=== PATIENT | female | born 1950 | race Caucasian/White ===

== ENCOUNTER 2018-12-02 13:39 | Inpatient (IN) | payer MEDICAID, MEDICARE ==
[~2018-12-02] VITALS: Ht 175.3 cm; Wt 103.6 kg
[2018-12-02 14:21] LABS: BASO % 1 % (0-3); EOS # 0.1 x10^3/uL (0.0-0.7); EOS % 2 % (0-3); HEMATOCRIT 35.8 % (36.0-47.0); HEMOGLOBIN 11.8 g/dL (12.0-15.5); LYMPH # 1.3 x10^3/uL (1.0-4.8); LYMPH % 25 % (24-48); MEAN CORPUSCULAR HEMOGLOBIN 26 pg (25-35); MEAN CORPUSCULAR HGB CONC 33 g/dL (31-37); MEAN CORPUSCULAR VOLUME 79 fL (79-100); MONO # 0.3 x10^3/uL (0.0-1.1); MONO % 6 % (0-9); NEUT # 3.5 x10^3uL (1.8-7.7); NEUT % 67 % (31-73); PLATELET COUNT 220 x10^3/uL (140-400); RED BLOOD COUNT 4.54 x10^6/uL (3.50-5.40); RED CELL DISTRIBUTION WIDTH 16.8 % (11.5-14.5); WHITE BLOOD COUNT 5.2 x10^3/uL (4.0-11.0)
[2018-12-02 14:35] LABS: ALBUMIN 3.7 g/dL (3.4-5.0); ALBUMIN/GLOBULIN RATIO 1.2 (1.0-1.7); CALCIUM 9.2 mg/dL (8.5-10.1); CREATININE 1.1 mg/dL (0.6-1.0); GFR 49.4; MAGNESIUM 1.6 mg/dL (1.8-2.4); POTASSIUM 4.6 mmol/L (3.5-5.1); TOTAL BILIRUBIN 0.4 mg/dL (0.2-1.0); TOTAL PROTEIN 6.7 g/dL (6.4-8.2)
[2018-12-02 15:37] LABS: BACTERIA,URINE MOD /HPF (0-FEW); BILIRUBIN,URINE NEG (NEG); CLARITY,URINE CLOUDY; COLOR,URINE YELLOW; GLUCOSE,URINE NEG (NEG); NITRITE,URINE POS (NEG); SQUAMOUS EPITHELIAL CELL,UR OCC /LPF; UROBILINOGEN,URINE 0.2 mg/dL (0.2 mg/dL); WBC,URINE >40 /HPF (0-4)
[2018-12-02 15:38] LABS: HYALINE CASTS, URINE OCC /HPF
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
[2018-12-02] MEDS ORDERED: LIDOCAINE 1% Multi-Dose 20 ML VIAL. ONE (16:27)
[2018-12-02] MEDS ORDERED: cefTRIAXone IM 1 GM VIAL IM ONE (16:45)
[2018-12-02 17:32] VITALS: BP 114/73
[2018-12-02] MEDS ORDERED: MAGNESIUM HYDROXIDE 2,400 MG/30 ML ORAL.SUSP. PO PRN (18:00)
[2018-12-02] MEDS ORDERED: METHYL SALICYLATE/MENTHOL TOPICAL OINTMENT 29GM TUBE. TP PRN (18:00)
[2018-12-02] MEDS ORDERED: ACETAMINOPHEN 325 MG TABLET PO PRN ×2 (18:00→21:00)
[2018-12-02] MEDS ORDERED: MAG HYDROX/AL HYDROX/SIMETH 30 ML ORAL.SUSP PO PRN (18:00)
[2018-12-02] MEDS ORDERED: LIDO30CR TP (20:57)
[2018-12-02] MEDS ORDERED: LEVE500T56 PO (20:57)
[2018-12-02] MEDS ORDERED: CHOL100013 PO (20:57)
[2018-12-02] MEDS ORDERED: FURO-69 PO (20:57)
[2018-12-02] MEDS ORDERED: POLY255P11 PO (20:57)
[2018-12-02] MEDS ORDERED: DICL100G18 TP (20:57)
[2018-12-02] MEDS ORDERED: MAGN2400 PO (20:57)
[2018-12-02] MEDS ORDERED: METH5TAB4 PO (20:57)
[2018-12-02] MEDS ORDERED: ARIP5TAB13 PO (20:57)
[2018-12-02] MEDS ORDERED: NYST15PO9 TP (20:57)
[2018-12-02] MEDS ORDERED: MELO7.5T29 PO (20:57)
[2018-12-02] MEDS ORDERED: CRAN200C2 PO (20:57)
[2018-12-02] MEDS ORDERED: METF500T PO (20:57)
[2018-12-02] MEDS ORDERED: ASPI325T11 PO (20:57)
[2018-12-02] MEDS ORDERED: SODI51CR DT (20:57)
[2018-12-02] MEDS ORDERED: CITA20TA6 PO (20:57)
[2018-12-02] MEDS ORDERED: ACET325T9 PO ×3 (20:57)
[2018-12-02] MEDS ORDERED: METF10007 PO (20:57)
[2018-12-02] MEDS ORDERED: SODIUM FLUORIDE DT SCH (21:00)
[2018-12-02] MEDS ORDERED: [UNRECOGNIZED DRUG - OTHER] DT SCH (21:00)
[2018-12-02] MEDS: NYSTATIN TOPICAL POWDER 15GM BOTTLE. TP SCH (21:00)
[2018-12-02] MEDS: DICLOFENAC SODIUM 1% TOPICAL GEL 100GM TUBE. TP SCH (21:00)
[2018-12-02] MEDS ORDERED: LIDOCAINE/PRILOCAINE TOPICAL CREAM 5GM TUBE. TP PRN (21:00)
[2018-12-02] MEDS ORDERED: NON FORMULARY ITEM (Magnesium Hydroxide (Milk Of Magnesia) 2,400 MG) PO PRN (21:00)
[2018-12-02] MEDS: levETIRAcetam 500 MG TABLET PO SCH (21:45)
[2018-12-02] MEDS: ACETAMINOPHEN 325 MG TABLET PO SCH (21:46)
--- NOTE | 2018-12-02 22:10 | PDOC ---
Exam Note: [place]ala Note: Please also refer to the separate dictated note~for this date of service dictated separately. Discussed the patient with Nursing staff reviewed the chart.~Reviewed interim history and current functioning. Reviewed vital signs,~ Labs/ Radiology~and current medications noted below. Continue current treatment with the changes noted in the dictated addendum note Assessment: Vital Signs: Vital Signs Date Time Temp Pulse Resp B/P (MAP) Pulse Ox O2 Delivery O2 Flow Rate FiO2 12/02/18 17:32 97.2 80 19 114/73 (87) 96 12/02/18 16:37 Room Air Labs: Laboratory Tests Test 12/02/18 14:05 12/02/18 15:15 White Blood Count 5.2 x10^3/uL (4.0-11.0) Red Blood Count 4.54 x10^6/uL (3.50-5.40) Hemoglobin 11.8 g/dL (12.0-15.5) L Hematocrit 35.8 % (36.0-47.0) L Mean Corpuscular Volume 79 fL (79-100) Mean Corpuscular Hemoglobin 26 pg (25-35) Mean Corpuscular Hemoglobin Concent 33 g/dL (31-37) Red Cell Distribution Width 16.8 % (11.5-14.5) H Platelet Count 220 x10^3/uL (140-400) Neutrophils (%) (Auto) 67 % (31-73) Lymphocytes (%) (Auto) 25 % (24-48) Monocytes (%) (Auto) 6 % (0-9) Eosinophils (%) (Auto) 2 % (0-3) Basophils (%) (Auto) 1 % (0-3) Neutrophils # (Auto) 3.5 x10^3uL (1.8-7.7) Lymphocytes # (Auto) 1.3 x10^3/uL (1.0-4.8) Monocytes # (Auto) 0.3 x10^3/uL (0.0-1.1) Eosinophils # (Auto) 0.1 x10^3/uL (0.0-0.7) Basophils # (Auto) 0.0 x10^3/uL (0.0-0.2) Sodium Level 138 mmol/L (136-145) Potassium Level 4.6 mmol/L (3.5-5.1) Chloride Level 102 mmol/L (98-107) Carbon Dioxide Level 25 mmol/L (21-32) Anion Gap 11 (6-14) Blood Urea Nitrogen 28 mg/dL (7-20) H Creatinine 1.1 mg/dL (0.6-1.0) H Estimated GFR (Cockcroft-Gault) 49.4 BUN/Creatinine Ratio 25 (6-20) H Glucose Level 142 mg/dL (70-99) H Calcium Level 9.2 mg/dL (8.5-10.1) Magnesium Level 1.6 mg/dL (1.8-2.4) L Total Bilirubin 0.4 mg/dL (0.2-1.0) Aspartate Amino Transferase (AST) 14 U/L (15-37) L Alanine Aminotransferase (ALT) 21 U/L (14-59) Alkaline Phosphatase 68 U/L (46-116) Total Protein 6.7 g/dL (6.4-8.2) Albumin 3.7 g/dL (3.4-5.0) Albumin/Globulin Ratio 1.2 (1.0-1.7) Urine Collection Type U cath Urine Color Yellow Urine Clarity Cloudy Urine pH 5.0 Urine Specific [place] 1.010 Urine Protein Neg (NEG-TRACE) Urine Glucose (UA) Neg mg/dL (NEG) Urine Ketones (Stick) Neg mg/dL (NEG) Urine Blood Small (NEG) Urine Nitrite Pos (NEG) Urine Bilirubin Neg (NEG) Urine Urobilinogen Dipstick 0.2 mg/dL (0.2 mg/dL) Urine Leukocyte Esterase Mod (NEG) Urine RBC 1-2 /HPF (0-2) Urine WBC >40 /HPF (0-4) Urine Squamous Epithelial Cells Occ /LPF Urine Bacteria Mod /HPF (0-FEW) Urine Hyaline Casts Occ /HPF Urine Mucus Mod /LPF Current Medications: Meds: Current Medications Ceftriaxone Sodium 1 gm/ Sodium Chloride 50 ml @ 100 mls/hr 1X ONCE IV ; Start 12/02/18 at 16:30; Stop 12/02/18 at 16:59; Status UNV Ceftriaxone Sodium (Rocephin Im) 1 gm 1X ONCE IM Last administered on at 16:34; Start 12/02/18 at 16:45; Stop 12/02/18 at 16:46; Status DC Lidocaine HCl 20 ml STK-MED ONCE .ROUTE ; Start 12/02/18 at 16:27; Stop 12/02/18 at 16:28; Status DC Acetaminophen (Tylenol) 650 mg PRN Q6HRS PRN PO PAIN / TEMP; Start 12/02/18 at 18:00 Multi-Ingredient Ointment (Analgesic Sachse) 1 andrew PRN QID PRN TP MUSCLE PAIN; Start 12/02/18 at 18:00 Al Hydroxide/Mg Hydroxide (Mylanta Plus Xs) 15 ml PRN AFTMEALHC PRN PO DYSPEPSIA; Start 12/02/18 at 18:00 Magnesium Hydroxide (Milk Of Magnesia) 2,400 mg PRN QHS PRN PO CONSTIPATION; Start 12/02/18 at 18:00 Acetaminophen (Tylenol) 325 mg 1400 PO ; Start 12/03/18 at 14:00 Acetaminophen (Tylenol) 325 mg PRN Q6HRS PRN PO PAIN; Start 12/02/18 at 21:00; Stop 12/02/18 at 21:18; Status DC Acetaminophen (Tylenol) 650 mg BID PO Last administered on 12/02/18at 21:46; Start 12/02/18 at 21:00 Aspirin (Aspirin Enteric Coated) 325 mg DAILY PO ; Start 12/03/18 at 09:00 Citalopram Hydrobromide (CeleXA) 20 mg DAILY PO ; Start 12/03/18 at 09:00 Diclofenac Sodium (Voltaren) 100 andrew QID TP ; Start 12/02/18 at 21:00 Furosemide (Lasix) 20 mg DAILY PO ; Start 12/03/18 at 09:00 Lidocaine/ Prilocaine (Emla) 5 andrew PRN TID PRN TP PAIN; Start 12/02/18 at 21:00 Nystatin (Nystop) 15 andrew BID TP ; Start 12/02/18 at 21:00 Sodium Fluoride (Sf 5000 Plus) 51 andrew BID DT ; Start 12/02/18 at 21:00; Stop 12/02 at 21:18; Status DC Aripiprazole (Abilify) 5 mg 1800 PO ; Start 12/03/18 at 18:00 Vitamin D (Vitamin D3) 1,000 unit DAILY PO ; Start 12/03/18 at 09:00 Non-Formulary Medication (Cranberry Extract (Cranberry)) 200 mg DAILY PO ; Start 12/03/18 at 09:00; Stop 12/03/18 at 09:00; Status DC Levetiracetam (Keppra) 500 mg BID PO ; Start 12/03/18 at 09:00; Stop 12/03/18 at 09:00; Status DC Non-Formulary Medication (Magnesium Hydroxide (Milk Of Magnesia)) 2,400 mg PRN QHS PRN PO CONSTIPATION; Start 12/02/18 at 21:00; Stop 12/02/18 at 21:08; Status DC Meloxicam (Mobic) 7.5 mg DAILY PO ; Start 12/03/18 at 09:00 Metformin HCl (Glucophage) 1,000 mg DAILYWBKFT PO ; Start 12/03/18 at 08:00 Metformin HCl (Glucophage) 500 mg DAILYBFRSUP PO ; Start 12/03/18 at 17:00 Methylphenidate HCl (Methylphenidate HCl) 5 mg DAILY PO ; Start 12/03/18 at 09:00 Polyethylene Glycol (miraLAX) 17 gm DAILY PO ; Start 12/03/18 at 09:00 Levetiracetam (Keppra) 500 mg BID PO Last administered on 12/02/18at 21:45; Start 12/02/18 at 21:45 Active Scripts Active Reported Tylenol (Acetaminophen) 325 Mg Tablet 325 Mg PO PRN Q6HRS PRN Tylenol (Acetaminophen) 325 Mg Tablet 650 Mg PO BID Tylenol (Acetaminophen) 325 Mg Tablet 325 Mg PO 1400 Polyethylene Glycol 3350 255 Gm Powder 17 Gm PO DAILY Nystatin 15 Gm Powder 15 Gm TP BID Ritalin (Methylphenidate Hcl) 5 Mg Tablet 5 Mg PO DAILY Glucophage (Metformin Hcl) 500 Mg Tablet 500 Mg PO DAILYBFRSUP Metformin Hcl 1,000 Mg Tablet 1,000 Mg PO DAILYWBKFT Milk Of Magnesia (Magnesium Hydroxide) 2,400 Mg/10 Ml Oral.susp 2,400 Mg PO PRN QHS PRN Meloxicam 7.5 Mg Tablet 7.5 Mg PO DAILY Lidocaine-Prilocaine Cream (Lidocaine/Prilocaine) 30 Gm Cream..g. 30 Gm TP PRN TID PRN Keppra (Levetiracetam) 500 Mg Tablet 500 Mg PO BID Lasix (Furosemide) 20 Mg Tablet 20 Mg PO DAILY Prevident 5000 Plus (Sodium Fluoride) 51 Gm Cream..g. 51 Gm DT BID Voltaren (Diclofenac Sodium) 100 Gm Gel..gram. 100 Gm TP QID Cranberry (Cranberry Extract) 200 Mg Capsule 200 Mg PO DAILY Citalopram Hbr (Citalopram Hydrobromide) 20 Mg Tablet 20 Mg PO DAILY Vitamin D (Cholecalciferol (Vitamin D3)) 1,000 Unit Capsule 1,000 Unit PO DAILY Aspirin Ec (Aspirin) 325 Mg Tablet. 325 Mg PO DAILY Abilify (Aripiprazole) 5 Mg Tablet 5 Mg PO 1800 I have reviewed the current psychotropics carefully including drug interactions. Risk benefit ratio favors no change other than as noted in my dictated progress note. ILENE LANG MD Dec 02, 2018 22:10
[2018-12-03 05:50] VITALS: BP 111/72
--- NOTE | 2018-12-03 08:08 | RAD ---
PQRS Compliance statement: One or more of the following individualized dose reduction techniques were utilized for this examination: 1. Automated exposure control. 2. Adjustment of the mA and/or kV according to patient size. 3. Use of iterative reconstruction technique. Indication:ALTERED MENTAL STATUS TECHNIQUE: CT head without IV contrast COMPARISON:None FINDINGS: No pathologic extra-axial or intra-axial fluid collection. The ventricles and basal cisterns are within normal limits. No acute intracranial bleed. No focal loss of khalil-white differentiation. Orbits are within normal limits. No suspicious calvarial lesion. Significant mucoperiosteal thickening is seen of the partially visualized right maxillary sinus. Rest of the paranasal sinuses and mastoid air cells are clear. IMPRESSION: 1. No acute intracranial process on this noncontrast CT. If concern for acute ischemic stroke is high, please consider MRI brain. 2. Opacification of the partially visualized right maxillary sinus suggests chronic sinus disease. Electronically signed by: Bud Damon DO (12/03/2018 8:05 AM) [id number]
[2018-12-03] MEDS: ACETAMINOPHEN 325 MG TABLET PO SCH ×3 (08:20→20:14)
[2018-12-03] MEDS: METHYLPHENIDATE HCL 5 MG TABLET PO SCH (08:20)
[2018-12-03] MEDS: MELOXICAM 7.5 MG TABLET PO SCH (08:21)
[2018-12-03] MEDS: ASPIRIN ENTERIC COATED 325 MG TABLET.DR. PO SCH (08:21)
[2018-12-03] MEDS: CHOLECALCIFEROL (VITAMIN D3) 1,000 UNIT TABLET PO SCH (08:21)
[2018-12-03] MEDS: FUROSEMIDE 20 MG TABLET PO SCH (08:21)
[2018-12-03] MEDS: metFORMIN 500 MG TABLET PO SCH ×2 (08:21→17:09)
[2018-12-03] MEDS: levETIRAcetam 500 MG TABLET PO SCH (08:21)
[2018-12-03] MEDS: POLYETHYLENE GLYCOL 3350 17 GM PACKET. PO SCH (08:22)
[2018-12-03] MEDS: DICLOFENAC SODIUM 1% TOPICAL GEL 100GM TUBE. TP SCH ×4 (08:22→20:15)
[2018-12-03] MEDS: NYSTATIN TOPICAL POWDER 15GM BOTTLE. TP SCH ×2 (08:22→21:00)
[2018-12-03] MEDS ORDERED: levETIRAcetam 500 MG TABLET PO SCH (09:00)
[2018-12-03] MEDS ORDERED: NON FORMULARY ITEM (Cranberry Extract (Cranberry) 200 MG) PO SCH (09:00)
[2018-12-03] MEDS ORDERED: CITALOPRAM 20 MG TABLET. PO SCH (09:00)
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
--- NOTE | 2018-12-03 14:17 | EKG ---
[address] [address] Test Date: 2018-12-02 Test Time: 14:20:38 Pat Name: RASHID ORTIZ Department: Room: [address] [place] [address] Gender: F Specialty Sales Consultant: MADELINE : [id number] Requested By: ABIMBOLA GATES Order Number: [id number] Reading MD: Tanner Robbins MD Measurements Intervals [place] Rate: 84 P: 36 NH: 146 QRS: 20 QRSD: 76 T: 47 QT: 352 QTc: 419 Interpretive Statements SINUS RHYTHM POOR R-WAVE PROGRESSION Electronically Signed On 12-04-2018 11:38:26 RN GERIATRIC by Tanner Robbins MD
[2018-12-03 16:20] VITALS: BP 96/60
[2018-12-03 17:08] LABS: THYROXINE 8.1 ug/dL (4.5-12.0)
[2018-12-03] MEDS ORDERED: ARIPiprazole 5 MG TABLET PO SCH (18:00)
[2018-12-03 20:40] LABS: THYROID STIM HORMONE (TSH) 2.227 uIU/mL (0.358-3.740)
[2018-12-03] MEDS: ZONISAMIDE 100 MG CAPSULE. PO SCH (22:14)
--- NOTE | 2018-12-03 22:27 | PDOC ---
Exam Note: Bala Note: Please also refer to the separate dictated note~for this date of service dictated separately.~Patient seen individually. Discussed the patient with Nursing staff reviewed the chart.~Reviewed interim history and current functioning. Reviewed vital signs,~Labs/ Radiology~and current medications noted below. Continue current treatment with the changes noted in the dictated addendum note Assessment: Vital Signs: Vital Signs Date Time Temp Pulse Resp B/P (MAP) Pulse Ox O2 Delivery O2 Flow Rate FiO2 12/03/18 16:20 97.8 78 18 96/60 (72) 95 12/02/18 16:37 Room Air I&O Intake and Output 12/03/18 06:59 Intake Total 360 ml Balance 360 ml Intake Oral 360 ml Labs: Laboratory Tests Test 12/03/18 07:35 Magnesium Level 1.7 mg/dL (1.8-2.4) L Triglycerides Level 94 mg/dL (0-150) Cholesterol Level 156 mg/dL (0-200) LDL Cholesterol, Calculated 105 mg/dL (0-100) H VLDL Cholesterol, Calculated 18 mg/dL (0-40) Non-HDL Cholesterol Calculated 123 mg/dL (0-129) HDL Cholesterol 33 mg/dL (40-60) L Cholesterol/HDL Ratio 4.0 Thyroid Stimulating Hormone (TSH) 2.227 uIU/mL (0.358-3.740) Current Medications: Meds: Current Medications Ceftriaxone Sodium 1 gm/ Sodium Chloride 50 ml @ 100 mls/hr 1X ONCE IV ; Start 12/02/18 at 16:30; Stop 12/02/18 at 16:59; Status UNV Ceftriaxone Sodium (Rocephin Im) 1 gm 1X ONCE IM Last administered on at 16:34; Start 12/02/18 at 16:45; Stop 12/02/18 at 16:46; Status DC Lidocaine HCl 20 ml STK-MED ONCE .ROUTE ; Start 12/02/18 at 16:27; Stop 12/02/18 at 16:28; Status DC Acetaminophen (Tylenol) 650 mg PRN Q6HRS PRN PO PAIN / TEMP; Start 12/02/18 at 18:00 Multi-Ingredient Ointment (Analgesic [place]) 1 andrew PRN QID PRN TP MUSCLE PAIN; Start 12/02/18 at 18:00 Al Hydroxide/Mg Hydroxide (Mylanta Plus Xs) 15 ml PRN AFTMEALHC PRN PO DYSPEPSIA; Start 12/02/18 at 18:00 Magnesium Hydroxide (Milk Of Magnesia) 2,400 mg PRN QHS PRN PO CONSTIPATION; Start 12/02/18 at 18:00 Acetaminophen (Tylenol) 325 mg 1400 PO Last administered on 12/03/18at 13:09; Start 12/03/18 at 14:00 Acetaminophen (Tylenol) 325 mg PRN Q6HRS PRN PO PAIN; Start 12/02/18 at 21:00; Stop 12/02/18 at 21:18; Status DC Acetaminophen (Tylenol) 650 mg BID PO Last administered on 12/03/18at 20:14; Start 12/02/18 at 21:00 Aspirin (Aspirin Enteric Coated) 325 mg DAILY PO Last administered on 12/03/18at 08:21; Start 12/03/18 at 09:00 Citalopram Hydrobromide (CeleXA) 20 mg DAILY PO Last administered on 12/03/18at 08:20; Start 12/03/18 at 09:00; Stop 12/03/18 at 17:56; Status DC Diclofenac Sodium (Voltaren) 100 andrew QID TP ; Start 12/02/18 at 21:00; Stop at 13:10; Status DC Furosemide (Lasix) 20 mg DAILY PO Last administered on 12/03/18at 08:21; Start at 09:00 Lidocaine/ Prilocaine (Emla) 5 andrew PRN TID PRN TP PAIN; Start 12/02/18 at 21:00 Nystatin (Nystop) 15 andrew BID TP Last administered on 12/03/18at 08:22; Start 12/02 at 21:00 Sodium Fluoride (Sf 5000 Plus) 51 andrew BID DT ; Start 12/02/18 at 21:00; Stop 12/02 at 21:18; Status DC Aripiprazole (Abilify) 5 mg 1800 PO Last administered on 12/03/18at 17:09; Start 12/03/18 at 18:00; Stop 12/03/18 at 18:00; Status DC Vitamin D (Vitamin D3) 1,000 unit DAILY PO Last administered on 12/03/18at 08:21 ; Start 12/03/18 at 09:00 Non-Formulary Medication (Cranberry Extract (Cranberry)) 200 mg DAILY PO ; Start 12/03/18 at 09:00; Stop 12/03/18 at 09:00; Status DC Levetiracetam (Keppra) 500 mg BID PO ; Start 12/03/18 at 09:00; Stop 12/03/18 at 09:00; Status DC Non-Formulary Medication (Magnesium Hydroxide (Milk Of Magnesia)) 2,400 mg PRN QHS PRN PO CONSTIPATION; Start 12/02/18 at 21:00; Stop 12/02/18 at 21:08; Status DC Meloxicam (Mobic) 7.5 mg DAILY PO Last administered on 12/03/18at 08:21; Start at 09:00 Metformin HCl (Glucophage) 1,000 mg DAILYWBKFT PO Last administered on at 08:21; Start 12/03/18 at 08:00 Metformin HCl (Glucophage) 500 mg DAILYBFRSUP PO Last administered on 12/03/18at 17:09; Start 12/03/18 at 17:00 Methylphenidate HCl (Methylphenidate HCl) 5 mg DAILY PO Last administered on 12/03/18at 08:20; Start 12/03/18 at 09:00 Polyethylene Glycol (miraLAX) 17 gm DAILY PO Last administered on 12/03/18at 08: 22; Start 12/03/18 at 09:00 Levetiracetam (Keppra) 500 mg BID PO Last administered on 12/03/18at 08:21; Start 12/02/18 at 21:45; Stop 12/03/18 at 13:47; Status DC Diclofenac Sodium (Voltaren) 1 andrew QID TP Last administered on 12/03/18at 20:15; Start 12/03/18 at 17:00 Zonisamide (Zonegran) 100 mg BID PO Last administered on 12/03/18at 22:14; Start 12/03/18 at 21:00 Aripiprazole (Abilify) 5 mg DAILY PO ; Start 12/04/18 at 09:00 Sertraline HCl (Zoloft) 50 mg DAILY PO ; Start 12/04/18 at 09:00 Active Scripts Active Reported Tylenol (Acetaminophen) 325 Mg Tablet 325 Mg PO PRN Q6HRS PRN Tylenol (Acetaminophen) 325 Mg Tablet 650 Mg PO BID Tylenol (Acetaminophen) 325 Mg Tablet 325 Mg PO 1400 Polyethylene Glycol 3350 255 Gm Powder 17 Gm PO DAILY Nystatin 15 Gm Powder 15 Gm TP BID Ritalin (Methylphenidate Hcl) 5 Mg Tablet 5 Mg PO DAILY Glucophage (Metformin Hcl) 500 Mg Tablet 500 Mg PO DAILYBFRSUP Metformin Hcl 1,000 Mg Tablet 1,000 Mg PO DAILYWBKFT Milk Of Magnesia (Magnesium Hydroxide) 2,400 Mg/10 Ml Oral.susp 2,400 Mg PO PRN QHS PRN Meloxicam 7.5 Mg Tablet 7.5 Mg PO DAILY Lidocaine-Prilocaine Cream (Lidocaine/Prilocaine) 30 Gm Cream..g. 30 Gm TP PRN TID PRN Keppra (Levetiracetam) 500 Mg Tablet 500 Mg PO BID Lasix (Furosemide) 20 Mg Tablet 20 Mg PO DAILY Prevident 5000 Plus (Sodium Fluoride) 51 Gm Cream..g. 51 Gm DT BID Voltaren (Diclofenac Sodium) 100 Gm Gel..gram. 100 Gm TP QID Cranberry (Cranberry Extract) 200 Mg Capsule 200 Mg PO DAILY Citalopram Hbr (Citalopram Hydrobromide) 20 Mg Tablet 20 Mg PO DAILY Vitamin D (Cholecalciferol (Vitamin D3)) 1,000 Unit Capsule 1,000 Unit PO DAILY Aspirin Ec (Aspirin) 325 Mg Tablet. 325 Mg PO DAILY Abilify (Aripiprazole) 5 Mg Tablet 5 Mg PO 1800 I have reviewed the current psychotropics carefully including drug interactions. Risk benefit ratio favors no change other than as noted in my dictated progress note. Diagnosis: Problems: (1) Major depressive disorder, recurrent episode (2) Anxiety disorder (3) Mild cognitive disorder (4) Impulse control disorder ILENE LANG MD Dec 03, 2018 22:27
[2018-12-04] MEDS: DICLOFENAC SODIUM 1% TOPICAL GEL 100GM TUBE. TP SCH ×4 (01:12→20:24)
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
[2018-12-04 06:11] VITALS: BP 101/63
[2018-12-04] MEDS: metFORMIN 500 MG TABLET PO SCH ×2 (07:25→17:11)
[2018-12-04] MEDS: ACETAMINOPHEN 325 MG TABLET PO SCH ×3 (07:25→20:23)
[2018-12-04] MEDS: ASPIRIN ENTERIC COATED 325 MG TABLET.DR. PO SCH (07:25)
[2018-12-04] MEDS: CHOLECALCIFEROL (VITAMIN D3) 1,000 UNIT TABLET PO SCH (07:25)
[2018-12-04] MEDS: FUROSEMIDE 20 MG TABLET PO SCH (07:25)
[2018-12-04] MEDS: MELOXICAM 7.5 MG TABLET PO SCH (07:26)
[2018-12-04] MEDS: POLYETHYLENE GLYCOL 3350 17 GM PACKET. PO SCH (07:26)
[2018-12-04] MEDS: ZONISAMIDE 100 MG CAPSULE. PO SCH ×2 (07:47→20:25)
[2018-12-04] MEDS: METHYLPHENIDATE HCL 5 MG TABLET PO SCH (07:48)
[2018-12-04] MEDS: ARIPiprazole 5 MG TABLET PO SCH (07:48)
[2018-12-04] MEDS: SERTRALINE 50 MG TABLET. PO SCH (07:48)
[2018-12-04] MEDS: NYSTATIN TOPICAL POWDER 15GM BOTTLE. TP SCH ×2 (09:00→20:23)
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
[2018-12-04 16:29] VITALS: BP 132/79
--- NOTE | 2018-12-04 22:17 | PDOC ---
Exam Note: Bala Note: Please also refer to the separate dictated note~for this date of service dictated separately.~Patient seen individually. Discussed the patient with Nursing staff reviewed the chart.~Reviewed interim history and current functioning. Reviewed vital signs,~Labs/ Radiology~and current medications noted below. Continue current treatment with the changes noted in the dictated addendum note Assessment: Vital Signs: Vital Signs Date Time Temp Pulse Resp B/P (MAP) Pulse Ox O2 Delivery O2 Flow Rate FiO2 12/04/18 16:29 97.2 92 17 132/79 (96) 98 Room Air I&O Intake and Output 12/04/18 06:59 Intake Total 1560 ml Balance 1560 ml Intake Oral 1560 ml # Voids 1 # Bowel Movements 1 Labs: Laboratory Tests Test 12/04/18 07:16 12/04/18 11:26 Glucose (Fingerstick) 227 mg/dL (70-99) H 172 mg/dL (70-99) H Current Medications: Meds: Current Medications Ceftriaxone Sodium 1 gm/ Sodium Chloride 50 ml @ 100 mls/hr 1X ONCE IV ; Start 12/02/18 at 16:30; Stop 12/02/18 at 16:59; Status UNV Ceftriaxone Sodium (Rocephin Im) 1 gm 1X ONCE IM Last administered on at 16:34; Start 12/02/18 at 16:45; Stop 12/02/18 at 16:46; Status DC Lidocaine HCl 20 ml STK-MED ONCE .ROUTE ; Start 12/02/18 at 16:27; Stop 12/02/18 at 16:28; Status DC Acetaminophen (Tylenol) 650 mg PRN Q6HRS PRN PO PAIN / TEMP; Start 12/02/18 at 18:00 Multi-Ingredient Ointment (Analgesic [place]) 1 andrew PRN QID PRN TP MUSCLE PAIN; Start 12/02/18 at 18:00 Al Hydroxide/Mg Hydroxide (Mylanta Plus Xs) 15 ml PRN AFTMEALHC PRN PO DYSPEPSIA; Start 12/02/18 at 18:00 Magnesium Hydroxide (Milk Of Magnesia) 2,400 mg PRN QHS PRN PO CONSTIPATION; Start 12/02/18 at 18:00 Acetaminophen (Tylenol) 325 mg 1400 PO Last administered on 12/04/18at 14:33; Start 12/03/18 at 14:00 Acetaminophen (Tylenol) 325 mg PRN Q6HRS PRN PO PAIN; Start 12/02/18 at 21:00; Stop 12/02/18 at 21:18; Status DC Acetaminophen (Tylenol) 650 mg BID PO Last administered on 12/04/18at 20:23; Start 12/02/18 at 21:00 Aspirin (Aspirin Enteric Coated) 325 mg DAILY PO Last administered on 12/04/18at 07:25; Start 12/03/18 at 09:00 Citalopram Hydrobromide (CeleXA) 20 mg DAILY PO Last administered on 12/03/18at 08:20; Start 12/03/18 at 09:00; Stop 12/03/18 at 17:56; Status DC Diclofenac Sodium (Voltaren) 100 andrew QID TP ; Start 12/02/18 at 21:00; Stop at 13:10; Status DC Furosemide (Lasix) 20 mg DAILY PO Last administered on 12/04/18at 07:25; Start at 09:00 Lidocaine/ Prilocaine (Emla) 5 andrew PRN TID PRN TP PAIN; Start 12/02/18 at 21:00 Nystatin (Nystop) 15 andrew BID TP Last administered on 12/03/18at 08:22; Start 12/02 at 21:00; Stop 12/04/18 at 07:51; Status DC Sodium Fluoride (Sf 5000 Plus) 51 andrew BID DT ; Start 12/02/18 at 21:00; Stop 12/02 at 21:18; Status DC Aripiprazole (Abilify) 5 mg 1800 PO Last administered on 12/03/18at 17:09; Start 12/03/18 at 18:00; Stop 12/03/18 at 18:00; Status DC Vitamin D (Vitamin D3) 1,000 unit DAILY PO Last administered on 12/04/18at 07:25 ; Start 12/03/18 at 09:00 Non-Formulary Medication (Cranberry Extract (Cranberry)) 200 mg DAILY PO ; Start 12/03/18 at 09:00; Stop 12/03/18 at 09:00; Status DC Levetiracetam (Keppra) 500 mg BID PO ; Start 12/03/18 at 09:00; Stop 12/03/18 at 09:00; Status DC Non-Formulary Medication (Magnesium Hydroxide (Milk Of Magnesia)) 2,400 mg PRN QHS PRN PO CONSTIPATION; Start 12/02/18 at 21:00; Stop 12/02/18 at 21:08; Status DC Meloxicam (Mobic) 7.5 mg DAILY PO Last administered on 12/04/18 07:26; Start at 09:00 Metformin HCl (Glucophage) 1,000 mg DAILYWBKFT PO Last administered on 07:25; Start 12/03/18 at 08:00 Metformin HCl (Glucophage) 500 mg DAILYBFRSUP PO Last administered on 12/04/18 17:11; Start 12/03/18 at 17:00 Methylphenidate HCl (Methylphenidate HCl) 5 mg DAILY PO Last administered on 07:48; Start 12/03/18 at 09:00 Polyethylene Glycol (miraLAX) 17 gm DAILY PO Last administered on 12/04/18 07: 26; Start 12/03/18 at 09:00 Levetiracetam (Keppra) 500 mg BID PO Last administered on 12/03/18 08:21; Start 12/02/18 at 21:45; Stop 12/03/18 at 13:47; Status DC Diclofenac Sodium (Voltaren) 1 andrew QID TP Last administered on 12/04/18 20:24; Start 12/03/18 at 17:00 Zonisamide (Zonegran) 100 mg BID PO Last administered on 12/04/18 20:25; Start 12/03/18 at 21:00 Aripiprazole (Abilify) 5 mg DAILY PO Last administered on 12/04/18 07:48; Start 12/04/18 at 09:00 Sertraline HCl (Zoloft) 50 mg DAILY PO Last administered on 12/04/18 07:48; Start 12/04/18 at 09:00; Stop 12/06/18 at 21:00 Nystatin (Nystop) 1 andrew BID TP Last administered on 12/04/18 20:23; Start at 09:00 Sertraline HCl (Zoloft) 75 mg DAILY PO ; Start 12/07/18 at 09:00 Active Scripts Active Reported Tylenol (Acetaminophen) 325 Mg Tablet 325 Mg PO PRN Q6HRS PRN Tylenol (Acetaminophen) 325 Mg Tablet 650 Mg PO BID Tylenol (Acetaminophen) 325 Mg Tablet 325 Mg PO 1400 Polyethylene Glycol 3350 255 Gm Powder 17 Gm PO DAILY Nystatin 15 Gm Powder 15 Gm TP BID Ritalin (Methylphenidate Hcl) 5 Mg Tablet 5 Mg PO DAILY Glucophage (Metformin Hcl) 500 Mg Tablet 500 Mg PO DAILYBFRSUP Metformin Hcl 1,000 Mg Tablet 1,000 Mg PO DAILYWBKFT Milk Of Magnesia (Magnesium Hydroxide) 2,400 Mg/10 Ml Oral.susp 2,400 Mg PO PRN QHS PRN Meloxicam 7.5 Mg Tablet 7.5 Mg PO DAILY Lidocaine-Prilocaine Cream (Lidocaine/Prilocaine) 30 Gm Cream..g. 30 Gm TP PRN TID PRN Keppra (Levetiracetam) 500 Mg Tablet 500 Mg PO BID Lasix (Furosemide) 20 Mg Tablet 20 Mg PO DAILY Prevident 5000 Plus (Sodium Fluoride) 51 Gm Cream..g. 51 Gm DT BID Voltaren (Diclofenac Sodium) 100 Gm Gel..gram. 100 Gm TP QID Cranberry (Cranberry Extract) 200 Mg Capsule 200 Mg PO DAILY Citalopram Hbr (Citalopram Hydrobromide) 20 Mg Tablet 20 Mg PO DAILY Vitamin D (Cholecalciferol (Vitamin D3)) 1,000 Unit Capsule 1,000 Unit PO DAILY Aspirin Ec (Aspirin) 325 Mg Tablet. 325 Mg PO DAILY Marcielify (Aripiprazole) 5 Mg Tablet 5 Mg PO 1800 I have reviewed the current psychotropics carefully including drug interactions. Risk benefit ratio favors no change other than as noted in my dictated progress note. Diagnosis: Problems: (1) Anxiety disorder (2) Impulse control disorder (3) Major depressive disorder, recurrent episode (4) Mild cognitive disorder ILENE LANG MD Dec 04, 2018 22:17
[2018-12-05 06:51] VITALS: BP 111/69
[2018-12-05] MEDS: POLYETHYLENE GLYCOL 3350 17 GM PACKET. PO SCH (07:45)
[2018-12-05] MEDS: ZONISAMIDE 100 MG CAPSULE. PO SCH ×2 (07:45→19:45)
[2018-12-05] MEDS: metFORMIN 500 MG TABLET PO SCH ×2 (07:46→17:00)
[2018-12-05] MEDS: MELOXICAM 7.5 MG TABLET PO SCH (07:46)
[2018-12-05] MEDS: SERTRALINE 50 MG TABLET. PO SCH (07:47)
[2018-12-05] MEDS: FUROSEMIDE 20 MG TABLET PO SCH (07:47)
[2018-12-05] MEDS: ASPIRIN ENTERIC COATED 325 MG TABLET.DR. PO SCH (07:47)
[2018-12-05] MEDS: CHOLECALCIFEROL (VITAMIN D3) 1,000 UNIT TABLET PO SCH (07:47)
[2018-12-05] MEDS: ARIPiprazole 5 MG TABLET PO SCH (07:47)
[2018-12-05] MEDS: ACETAMINOPHEN 325 MG TABLET PO SCH ×3 (07:47→19:45)
[2018-12-05] MEDS: METHYLPHENIDATE HCL 5 MG TABLET PO SCH (08:33)
[2018-12-05] MEDS: NYSTATIN TOPICAL POWDER 15GM BOTTLE. TP SCH ×2 (09:00→19:46)
[2018-12-05] MEDS: DICLOFENAC SODIUM 1% TOPICAL GEL 100GM TUBE. TP SCH ×4 (10:54→19:47)
[2018-12-05 16:24] VITALS: BP 125/79
--- NOTE | 2018-12-05 22:35 | PDOC ---
Exam Note: [place] Note: Please also refer to the separate dictated note~for this date of service dictated separately.~Patient seen individually. Discussed the patient with Nursing staff reviewed the chart.~Reviewed interim history and current functioning. Reviewed vital signs,~Labs/ Radiology~and current medications noted below. Continue current treatment with the changes noted in the dictated addendum note Assessment: Vital Signs: Vital Signs Date Time Temp Pulse Resp B/P (MAP) Pulse Ox O2 Delivery O2 Flow Rate FiO2 12/05/18 16:24 98.3 84 20 125/79 (94) 99 Room Air I&O Intake and Output 12/05/18 06:59 Intake Total 1080 ml Balance 1080 ml Intake Oral 1080 ml Labs: Laboratory Tests Test 12/05/18 07:08 12/05/18 11:17 12/05/18 16:58 Glucose (Fingerstick) 188 mg/dL (70-99) H 177 mg/dL (70-99) H 152 mg/dL (70-99) H Current Medications: Meds: Current Medications Ceftriaxone Sodium 1 gm/ Sodium Chloride 50 ml @ 100 mls/hr 1X ONCE IV ; Start 12/02/18 at 16:30; Stop 12/02/18 at 16:59; Status UNV Ceftriaxone Sodium (Rocephin Im) 1 gm 1X ONCE IM Last administered on at 16:34; Start 12/02/18 at 16:45; Stop 12/02/18 at 16:46; Status DC Lidocaine HCl 20 ml STK-MED ONCE .ROUTE ; Start 12/02/18 at 16:27; Stop 12/02/18 at 16:28; Status DC Acetaminophen (Tylenol) 650 mg PRN Q6HRS PRN PO PAIN / TEMP; Start 12/02/18 at 18:00 Multi-Ingredient Ointment (Analgesic [place]) 1 andrew PRN QID PRN TP MUSCLE PAIN; Start 12/02/18 at 18:00 Al Hydroxide/Mg Hydroxide (Mylanta Plus Xs) 15 ml PRN AFTMEALHC PRN PO DYSPEPSIA; Start 12/02/18 at 18:00 Magnesium Hydroxide (Milk Of Magnesia) 2,400 mg PRN QHS PRN PO CONSTIPATION; Start 12/02/18 at 18:00 Acetaminophen (Tylenol) 325 mg 1400 PO Last administered on 12/05/18at 12:29; Start 12/03/18 at 14:00 Acetaminophen (Tylenol) 325 mg PRN Q6HRS PRN PO PAIN; Start 12/02/18 at 21:00; Stop 12/02/18 at 21:18; Status DC Acetaminophen (Tylenol) 650 mg BID PO Last administered on 12/05/18 19:45; Start 12/02/18 at 21:00 Aspirin (Aspirin Enteric Coated) 325 mg DAILY PO Last administered on 12/05/18 07:47; Start 12/03/18 at 09:00 Citalopram Hydrobromide (CeleXA) 20 mg DAILY PO Last administered on 12/03/18 08:20; Start 12/03/18 at 09:00; Stop 12/03/18 at 17:56; Status DC Diclofenac Sodium (Voltaren) 100 andrew QID TP ; Start 12/02/18 at 21:00; Stop at 13:10; Status DC Furosemide (Lasix) 20 mg DAILY PO Last administered on 12/05/18 07:47; Start at 09:00 Lidocaine/ Prilocaine (Emla) 5 andrew PRN TID PRN TP PAIN; Start 12/02/18 at 21:00 Nystatin (Nystop) 15 andrew BID TP Last administered on 12/03/18at 08:22; Start 12/02 at 21:00; Stop 12/04/18 at 07:51; Status DC Sodium Fluoride (Sf 5000 Plus) 51 andrew BID DT ; Start 12/02/18 at 21:00; Stop 12/02 at 21:18; Status DC Aripiprazole (Abilify) 5 mg 1800 PO Last administered on 12/03/18 17:09; Start 12/03/18 at 18:00; Stop 12/03/18 at 18:00; Status DC Vitamin D (Vitamin D3) 1,000 unit DAILY PO Last administered on 12/05/18 07:47 ; Start 12/03/18 at 09:00 Non-Formulary Medication (Cranberry Extract (Cranberry)) 200 mg DAILY PO ; Start 12/03/18 at 09:00; Stop 12/03/18 at 09:00; Status DC Levetiracetam (Keppra) 500 mg BID PO ; Start 12/03/18 at 09:00; Stop 12/03/18 at 09:00; Status DC Non-Formulary Medication (Magnesium Hydroxide (Milk Of Magnesia)) 2,400 mg PRN QHS PRN PO CONSTIPATION; Start 12/02/18 at 21:00; Stop 12/02/18 at 21:08; Status DC Meloxicam (Mobic) 7.5 mg DAILY PO Last administered on 12/05/18 07:46; Start at 09:00 Metformin HCl (Glucophage) 1,000 mg DAILYWBKFT PO Last administered on 07:46; Start 12/03/18 at 08:00 Metformin HCl (Glucophage) 500 mg DAILYBFRSUP PO Last administered on 12/05/18 17:00; Start 12/03/18 at 17:00 Methylphenidate HCl (Methylphenidate HCl) 5 mg DAILY PO Last administered on 08:33; Start 12/03/18 at 09:00 Polyethylene Glycol (miraLAX) 17 gm DAILY PO Last administered on 12/05/18 07: 45; Start 12/03/18 at 09:00 Levetiracetam (Keppra) 500 mg BID PO Last administered on 12/03/18 08:21; Start 12/02/18 at 21:45; Stop 12/03/18 at 13:47; Status DC Diclofenac Sodium (Voltaren) 1 andrew QID TP Last administered on 12/05/18 19:47; Start 12/03/18 at 17:00 Zonisamide (Zonegran) 100 mg BID PO Last administered on 12/05/18 19:45; Start 12/03/18 at 21:00 Aripiprazole (Abilify) 5 mg DAILY PO Last administered on 12/05/18 07:47; Start 12/04/18 at 09:00 Sertraline HCl (Zoloft) 50 mg DAILY PO Last administered on 12/05/18 07:47; Start 12/04/18 at 09:00; Stop 12/06/18 at 21:00 Nystatin (Nystop) 1 andrew BID TP Last administered on 12/05/18 19:46; Start at 09:00 Sertraline HCl (Zoloft) 75 mg DAILY PO ; Start 12/07/18 at 09:00 Active Scripts Active Reported Tylenol (Acetaminophen) 325 Mg Tablet 325 Mg PO PRN Q6HRS PRN Tylenol (Acetaminophen) 325 Mg Tablet 650 Mg PO BID Tylenol (Acetaminophen) 325 Mg Tablet 325 Mg PO 1400 Polyethylene Glycol 3350 255 Gm Powder 17 Gm PO DAILY Nystatin 15 Gm Powder 15 Gm TP BID Ritalin (Methylphenidate Hcl) 5 Mg Tablet 5 Mg PO DAILY Glucophage (Metformin Hcl) 500 Mg Tablet 500 Mg PO DAILYBFRSUP Metformin Hcl 1,000 Mg Tablet 1,000 Mg PO DAILYWBKFT Milk Of Magnesia (Magnesium Hydroxide) 2,400 Mg/10 Ml Oral.susp 2,400 Mg PO PRN QHS PRN Meloxicam 7.5 Mg Tablet 7.5 Mg PO DAILY Lidocaine-Prilocaine Cream (Lidocaine/Prilocaine) 30 Gm Cream..g. 30 Gm TP PRN TID PRN Keppra (Levetiracetam) 500 Mg Tablet 500 Mg PO BID Lasix (Furosemide) 20 Mg Tablet 20 Mg PO DAILY Prevident 5000 Plus (Sodium Fluoride) 51 Gm Cream..g. 51 Gm DT BID Voltaren (Diclofenac Sodium) 100 Gm Gel..gram. 100 Gm TP QID Cranberry (Cranberry Extract) 200 Mg Capsule 200 Mg PO DAILY Citalopram Hbr (Citalopram Hydrobromide) 20 Mg Tablet 20 Mg PO DAILY Vitamin D (Cholecalciferol (Vitamin D3)) 1,000 Unit Capsule 1,000 Unit PO DAILY Aspirin Ec (Aspirin) 325 Mg Tablet.dr 325 Mg PO DAILY Abilify (Aripiprazole) 5 Mg Tablet 5 Mg PO 1800 I have reviewed the current psychotropics carefully including drug interactions. Risk benefit ratio favors no change other than as noted in my dictated progress note. Diagnosis: Problems: (1) Anxiety disorder (2) Impulse control disorder (3) Major depressive disorder, recurrent episode (4) Mild cognitive disorder ILENE LANG MD Dec 05, 2018 22:35
--- NOTE | 2018-12-06 04:03 | PN ---
DATE: 12/04/2018 PSYCHIATRIC PROGRESS NOTE This late entry 12/04/2018 covers elements not covered in my initial note. SUBJECTIVE: I met with the patient in the evening, staffed at a treatment team meeting with the entire team earlier in the day. The patient slept 7-1/4 hours. She is having a swallow evaluation, noted to be needy, attention seeking per nursing report. REVIEW OF SYSTEMS: Ambulation impaired, in wheelchair. No CV, , pulmonary, eye system symptoms on review. MENTAL STATUS EXAM: Oriented to herself and situation. Speech moderate latency, coherent. Abstraction fair, computation impaired, language function intact. Mood and affect withdrawn. LABORATORY DATA: Reviewed. IMPRESSION: Unchanged from initial note. PLAN: Increase Zoloft to 75 mg a day after she has been on 50 for 3 days. Rest unchanged for now. MAN Kristyn LANG MD DR: NIDIA/kwasi JOB#: [id number] / [id number]
--- NOTE | 2018-12-06 04:11 | PN ---
DATE: 12/03/2018 PSYCHIATRIC PROGRESS NOTE This late entry 12/03/2018 covers elements not covered in my initial note. SUBJECTIVE: I met with the patient in the evening. The patient slept 6-1/2 hours. She is noted to be helpless, anxious, and restless. Dr. Ruiz did change her Keppra to Zonegran 100 mg twice a day. REVIEW OF SYSTEMS: Ambulation impaired, in wheelchair. No CV, , pulmonary, eye system symptoms on review. MENTAL STATUS EXAM: Reasonably oriented. Speech is coherent, abstraction fair, computation impaired, language function intact, attention span short. Mood and affect still depressed. No active suicidal ideation. Less aggressive. LABORATORY DATA: Reviewed. IMPRESSION: Major depressive disorder, recurrent, in partial remission; anxiety disorder, unspecified; impulse control disorder, unspecified. PLAN: Change Celexa to Zoloft 50 mg a day. Change the Abilify 5 mg at 1800 to the morning. Continue Ritalin 5 mg daily for her narcolepsy. Rest unchanged for now. ILENE LANG MD DR: NIDIA/kwasi JOB#: [id number] / [id number]
[2018-12-06 05:18] VITALS: BP 122/76
[2018-12-06] MEDS: FUROSEMIDE 20 MG TABLET PO SCH (09:01)
[2018-12-06] MEDS: SERTRALINE 50 MG TABLET. PO SCH (09:01)
[2018-12-06] MEDS: metFORMIN 500 MG TABLET PO SCH ×2 (09:02→17:08)
[2018-12-06] MEDS: ASPIRIN ENTERIC COATED 325 MG TABLET.DR. PO SCH (09:02)
[2018-12-06] MEDS: CHOLECALCIFEROL (VITAMIN D3) 1,000 UNIT TABLET PO SCH (09:02)
[2018-12-06] MEDS: MELOXICAM 7.5 MG TABLET PO SCH (09:02)
[2018-12-06] MEDS: ARIPiprazole 5 MG TABLET PO SCH (09:03)
[2018-12-06] MEDS: NYSTATIN TOPICAL POWDER 15GM BOTTLE. TP SCH ×2 (09:03→19:38)
[2018-12-06] MEDS: DICLOFENAC SODIUM 1% TOPICAL GEL 100GM TUBE. TP SCH ×4 (09:03→19:38)
[2018-12-06] MEDS: ACETAMINOPHEN 325 MG TABLET PO SCH ×3 (09:03→19:36)
[2018-12-06] MEDS: ZONISAMIDE 100 MG CAPSULE. PO SCH ×2 (09:03→19:38)
[2018-12-06] MEDS: METHYLPHENIDATE HCL 5 MG TABLET PO SCH (09:05)
[2018-12-06] MEDS: POLYETHYLENE GLYCOL 3350 17 GM PACKET. PO SCH (09:06)
[2018-12-06 15:38] VITALS: BP 112/69
[2018-12-06 18:22] VITALS: BP 110/60
[2018-12-06] MEDS: SMZ/TMP 800/160MG TABLET. PO SCH (19:38)
[2018-12-06] MEDS: LACTOBACILLUS RHAMNOSUS GG 1 CAPSULE. PO SCH (19:38)
--- NOTE | 2018-12-07 00:08 | PN ---
DATE: 12/06/2018 SUBJECTIVE: The patient was seen today, met with the staff, chart reviewed. The patient continues to complain of decreased sleep on wheelchair, multiple physical complaints. The patient apparently has shown some improvement, still exhibits periodic agitation, emotional lability and irritability. OBSERVATION: VITAL SIGNS: Temperature 98.1, blood pressure 122/76, pulse 92, respiration 18, O2 sat 96%. Slept about 6 hours last night. Her appetite is fair. MEDICATIONS: Reviewed. Currently on Zoloft 125 mg daily, Abilify 5 mg daily. The patient is not having any side effects with the medications. LABORATORY DATA: The patient's lab reviewed, no significant change. ASSESSMENT: Major depression, recurrent, cognitive disorder, mild. DONTAE SINGH MD DR: BARBARA/kwasi JOB#: [id number] / [id number]
[2018-12-07 06:24] VITALS: BP 129/79
[2018-12-07] MEDS: DICLOFENAC SODIUM 1% TOPICAL GEL 100GM TUBE. TP SCH ×4 (07:42→19:37)
[2018-12-07] MEDS: CHOLECALCIFEROL (VITAMIN D3) 1,000 UNIT TABLET PO SCH (07:43)
[2018-12-07] MEDS: ZONISAMIDE 100 MG CAPSULE. PO SCH ×2 (07:43→19:23)
[2018-12-07] MEDS: ACETAMINOPHEN 325 MG TABLET PO SCH ×3 (07:44→19:16)
[2018-12-07] MEDS: metFORMIN 500 MG TABLET PO SCH ×2 (07:44→17:59)
[2018-12-07] MEDS: FUROSEMIDE 20 MG TABLET PO SCH (07:44)
[2018-12-07] MEDS: ARIPiprazole 5 MG TABLET PO SCH (07:45)
[2018-12-07] MEDS: SMZ/TMP 800/160MG TABLET. PO SCH ×2 (07:45→19:16)
[2018-12-07] MEDS: MELOXICAM 7.5 MG TABLET PO SCH (07:45)
[2018-12-07] MEDS: LACTOBACILLUS RHAMNOSUS GG 1 CAPSULE. PO SCH ×2 (07:45→19:16)
[2018-12-07] MEDS: ASPIRIN ENTERIC COATED 325 MG TABLET.DR. PO SCH (07:45)
[2018-12-07] MEDS: NYSTATIN TOPICAL POWDER 15GM BOTTLE. TP SCH ×2 (07:46→19:23)
[2018-12-07] MEDS: POLYETHYLENE GLYCOL 3350 17 GM PACKET. PO SCH (07:46)
[2018-12-07] MEDS: METHYLPHENIDATE HCL 5 MG TABLET PO SCH (07:48)
[2018-12-07] MEDS: SERTRALINE 25 MG TABLET. PO SCH (08:05)
[2018-12-07 16:31] VITALS: BP 126/80
--- NOTE | 2018-12-08 02:39 | PN ---
DATE: 12/05/2018 PSYCHIATRIC PROGRESS NOTE This late entry 12/05/2018 covers elements not covered in my initial note. SUBJECTIVE: I met with the patient in the evening. The patient slept 7 hours previous night. She presents, quite helpless, but nursing reported attention seeking. REVIEW OF SYSTEMS: Ambulation impaired, in wheelchair. No CV, , pulmonary, eye, ENT system symptoms on review. MENTAL STATUS EXAM: Oriented to herself and situation. Speech has some latency, coherent. Abstraction fair, computation impaired, language function intact, attention span short. Mood and affect remain somewhat depressed, anxious, labile, obsessive. LABORATORY DATA: Reviewed. IMPRESSION: Unchanged from initial note. Increased Zoloft to 75 mg a day after she has been on 50 mg for 3 days. Rest unchanged. MAN Kristyn LANG MD DR: NIDIA/kwasi JOB#: [id number] / [id number]
--- NOTE | 2018-12-08 05:05 | PN ---
DATE: 12/07/2018 SUBJECTIVE: The patient was seen today. I met with the staff, chart reviewed. The patient continues to have problems, increased agitation, restlessness, multiple physical complaints. The patient is not sleeping well. The patient is on wheelchair. Vital signs stable, decreased sleep, appetite improved. The patient's medications include Zoloft 125 mg daily, Abilify 5 mg daily and not having any major side effects. ASSESSMENT: Major depressive disorder, recurrent and cognitive disorder, mild. PLAN: To continue with the treatment. DONTAE SINGH MD DR: BARBARA/kwasi JOB#: [id number] / [id number]
[2018-12-08 06:11] VITALS: BP 113/72
[2018-12-08] MEDS: CHOLECALCIFEROL (VITAMIN D3) 1,000 UNIT TABLET PO SCH (09:37)
[2018-12-08] MEDS: POLYETHYLENE GLYCOL 3350 17 GM PACKET. PO SCH (09:37)
[2018-12-08] MEDS: FUROSEMIDE 20 MG TABLET PO SCH (09:37)
[2018-12-08] MEDS: ARIPiprazole 5 MG TABLET PO SCH ×2 (09:37→13:52)
[2018-12-08] MEDS: METHYLPHENIDATE HCL 5 MG TABLET PO SCH (09:38)
[2018-12-08] MEDS: LACTOBACILLUS RHAMNOSUS GG 1 CAPSULE. PO SCH ×2 (09:38→20:53)
[2018-12-08] MEDS: ASPIRIN ENTERIC COATED 325 MG TABLET.DR. PO SCH (09:38)
[2018-12-08] MEDS: SERTRALINE 25 MG TABLET. PO SCH (09:38)
[2018-12-08] MEDS: MELOXICAM 7.5 MG TABLET PO SCH (09:38)
[2018-12-08] MEDS: metFORMIN 500 MG TABLET PO SCH ×2 (09:39→16:51)
[2018-12-08] MEDS: SMZ/TMP 800/160MG TABLET. PO SCH ×2 (09:39→20:53)
[2018-12-08] MEDS: ACETAMINOPHEN 325 MG TABLET PO SCH ×3 (09:39→20:52)
[2018-12-08] MEDS: NYSTATIN TOPICAL POWDER 15GM BOTTLE. TP SCH ×2 (09:40→20:54)
[2018-12-08] MEDS: DICLOFENAC SODIUM 1% TOPICAL GEL 100GM TUBE. TP SCH ×4 (09:40→20:54)
[2018-12-08] MEDS: ZONISAMIDE 100 MG CAPSULE. PO SCH ×2 (09:41→20:53)
[2018-12-08 16:29] VITALS: BP 123/77
[2018-12-09 06:39] VITALS: BP 115/74
--- NOTE | 2018-12-09 06:57 | PN ---
DATE: 12/08/2018 SUBJECTIVE: The patient was seen today, met with the staff, chart reviewed. The patient continues to exhibit behavior problems, constantly yelling, calling out for help and difficult to redirect. The patient is also exhibiting increased agitation and restlessness and also confusion. OBSERVATION: VITAL SIGNS: Temperature 97.4, blood pressure 113/72, pulse 92, respirations 18, O2 sat 94%. Slept about 8 hours last night. The patient is not presenting with any physical problems. MEDICATIONS: The patient's current medications include Zoloft 125 mg daily, Abilify 5 mg daily and the patient is not having any side effects. 1. ASSESSMENT: 2. 1. Major depressive disorder, recurrent. 3. 2. Cognitive disorder, mild. PLAN: To continue with the treatment. DONTAE SINGH MD DR: BARBARA/kwasi JOB#: [id number] / [id number]
[2018-12-09] MEDS: LACTOBACILLUS RHAMNOSUS GG 1 CAPSULE. PO SCH ×2 (08:48→20:02)
[2018-12-09] MEDS: ARIPiprazole 5 MG TABLET PO SCH ×2 (08:48→12:03)
[2018-12-09] MEDS: CHOLECALCIFEROL (VITAMIN D3) 1,000 UNIT TABLET PO SCH (08:48)
[2018-12-09] MEDS: POLYETHYLENE GLYCOL 3350 17 GM PACKET. PO SCH (08:48)
[2018-12-09] MEDS: SMZ/TMP 800/160MG TABLET. PO SCH ×2 (08:49→20:02)
[2018-12-09] MEDS: FUROSEMIDE 20 MG TABLET PO SCH (08:49)
[2018-12-09] MEDS: ASPIRIN ENTERIC COATED 325 MG TABLET.DR. PO SCH (08:49)
[2018-12-09] MEDS: ACETAMINOPHEN 325 MG TABLET PO SCH ×3 (08:49→20:02)
[2018-12-09] MEDS: SERTRALINE 25 MG TABLET. PO SCH (08:49)
[2018-12-09] MEDS: MELOXICAM 7.5 MG TABLET PO SCH (08:50)
[2018-12-09] MEDS: ZONISAMIDE 100 MG CAPSULE. PO SCH ×2 (08:50→20:02)
[2018-12-09] MEDS: metFORMIN 500 MG TABLET PO SCH ×2 (08:50→17:13)
[2018-12-09] MEDS: DICLOFENAC SODIUM 1% TOPICAL GEL 100GM TUBE. TP SCH ×4 (08:51→20:01)
[2018-12-09] MEDS: NYSTATIN TOPICAL POWDER 15GM BOTTLE. TP SCH ×2 (08:53→20:01)
[2018-12-09] MEDS: METHYLPHENIDATE HCL 5 MG TABLET PO SCH (08:53)
--- NOTE | 2018-12-09 09:22 | PN ---
DATE: 12/03/2018 SUBJECTIVE: The patient denies any new medical or neurological complaints. She is cooperative, eating and doing well. She denies any falls. She ambulates with a wheelchair all the time because of severe pain of the knees. OBJECTIVE: GENERAL: Obese female, not in acute distress. VITAL SIGNS: Blood pressure 96/60, respiratory rate 18, pulse is 78, temperature 97.8, and oxygen saturation 95% on room air. HEENT: Normocephalic, atraumatic, otherwise unremarkable. NECK: Supple. Negative for carotid bruit, lymphadenopathy or thyromegaly. LUNGS: Clear to A and P. CARDIOVASCULAR: Regular rhythm, normal S1, S2. ABDOMEN: Soft. Bowel sounds positive. EXTREMITIES: Negative for cyanosis, clubbing or pitting edema. NEUROLOGIC: The patient is alert and oriented x3. Speech is fluent. There is no language dysfunction. Memory, judgment, and abstract thinking are normal. The patient denies hallucination or delusion. Cranial nerves are intact except for mild right facial asymmetry, probably due to previous head injuries and possible right facial palsy versus a stroke. Hearing is intact bilaterally. The palate is elevated symmetrically. Otherwise, unremarkable. Motor Examination: No focal muscle bulk was seen. The tone is normal. The strength is 4/5 throughout. Sensory examination: Diminished pinprick and light touch senses in the patient's both lower extremities. Deep tendon reflexes were symmetric and hypoactive with absent Achilles responses. Gait, she is on wheelchair. IMPRESSION: 1. History of seizure disorder. The patient was started on Zonegran 100 mg twice a day and discontinued Keppra with possible side effects. 2. History of narcolepsy and cataplexy, depression, anxiety, and ____ disturbance. 3. Urinary tract infections. 4. History of head injuries with subsequent seizure activities. RECOMMENDATIONS: We will continue with Zonegran 100 mg b.i.d., continue with current medical and psychiatric care. M Wm WARD MD DR: ISRRAEL/kwasi JOB#: [id number] / [id number]
--- NOTE | 2018-12-09 10:30 | PN ---
DATE: 12/04/2018 SUBJECTIVE: The patient denies any new medical or neurological complaints. She has not had any recurrent seizure. The patient stated she tolerated Zonegran well. She eats and drinks well. OBJECTIVE: GENERAL: Obese female, not in acute distress. VITAL SIGNS: Blood pressure 101/63, respiratory rate 20, pulse is 91, temperature 96. HEENT: Normocephalic, atraumatic, otherwise unremarkable. NECK: Supple. Negative for carotid bruit, lymphadenopathy or thyromegaly. LUNGS: Clear to A and P. CARDIOVASCULAR: Regular rate and rhythm, normal S1, S2. ABDOMEN: Soft. Bowel sounds positive. EXTREMITIES: Negative for cyanosis, clubbing or pitting edema. NEUROLOGIC: Mental Status: The patient is alert and oriented x 3. Speech is fluent. There is no language dysfunction, otherwise unremarkable. Cranial nerves are intact except for right facial asymmetry. ____. IMPRESSION: ____. 3. Multiple psychiatric problems include depressions, anxiety, and intermittent behavior disturbance. 4. Multiple medical problems include history of seizure disorder, no recurrence since admission, narcolepsy, diabetes mellitus and anxiety. RECOMMENDATIONS: Continue with current management initiated by Dr. Grimaldo. Continue with current psychiatric management and medical care. M Wm WARD MD DR: ISRRAEL/kwasi JOB#: [id number] / [id number]
[2018-12-09 16:27] VITALS: BP 125/79
--- NOTE | 2018-12-10 05:24 | PN ---
DATE: 12/09/2018 SUBJECTIVE: The patient was seen today, met with the staff, chart reviewed. The patient continues to exhibit behavior problems, mood swings, crying spells, increased agitation and confusion. OBSERVATION: VITAL SIGNS: Temperature 97.1, blood pressure 125/79, pulse 84, respirations 19, O2 sat 96%. The patient is not having any side effects to the medications. CURRENT MEDICATIONS: Include Zoloft, Abilify. ASSESSMENT: Major depressive disorder, recurrent; cognitive disorder, mild. PLAN: To continue with the treatment. DONTAE SINGH MD DR: BARBARA/kwasi JOB#: [id number] / [id number]
[2018-12-10 06:28] VITALS: BP 113/70
[2018-12-10] MEDS: CHOLECALCIFEROL (VITAMIN D3) 1,000 UNIT TABLET PO SCH (07:49)
[2018-12-10] MEDS: metFORMIN 500 MG TABLET PO SCH ×2 (07:49→17:15)
[2018-12-10] MEDS: SERTRALINE 25 MG TABLET. PO SCH (07:50)
[2018-12-10] MEDS: ASPIRIN ENTERIC COATED 325 MG TABLET.DR. PO SCH (07:50)
[2018-12-10] MEDS: FUROSEMIDE 20 MG TABLET PO SCH (07:51)
[2018-12-10] MEDS: SMZ/TMP 800/160MG TABLET. PO SCH ×2 (07:51→19:37)
[2018-12-10] MEDS: LACTOBACILLUS RHAMNOSUS GG 1 CAPSULE. PO SCH ×2 (07:51→19:37)
[2018-12-10] MEDS: ACETAMINOPHEN 325 MG TABLET PO SCH ×3 (07:51→19:38)
[2018-12-10] MEDS: MELOXICAM 7.5 MG TABLET PO SCH (07:52)
[2018-12-10] MEDS: ARIPiprazole 5 MG TABLET PO SCH ×2 (07:52→12:29)
[2018-12-10] MEDS: NYSTATIN TOPICAL POWDER 15GM BOTTLE. TP SCH ×2 (07:59→19:38)
[2018-12-10] MEDS: ZONISAMIDE 100 MG CAPSULE. PO SCH ×2 (07:59→19:37)
[2018-12-10] MEDS: DICLOFENAC SODIUM 1% TOPICAL GEL 100GM TUBE. TP SCH ×4 (08:03→21:00)
[2018-12-10] MEDS: POLYETHYLENE GLYCOL 3350 17 GM PACKET. PO SCH (08:03)
[2018-12-10] MEDS: METHYLPHENIDATE HCL 5 MG TABLET PO SCH (08:05)
[2018-12-10 12:48] LABS: BASO % 1 % (0-3); EOS # 0.1 x10^3/uL (0.0-0.7); EOS % 2 % (0-3); HEMATOCRIT 34.9 % (36.0-47.0); HEMOGLOBIN 11.3 g/dL (12.0-15.5); LYMPH % 21 % (24-48); MEAN CORPUSCULAR HEMOGLOBIN 26 pg (25-35); MEAN CORPUSCULAR HGB CONC 32 g/dL (31-37); MEAN CORPUSCULAR VOLUME 79 fL (79-100); MONO # 0.3 x10^3/uL (0.0-1.1); MONO % 7 % (0-9); NEUT # 3.3 x10^3uL (1.8-7.7); NEUT % 71 % (31-73); PLATELET COUNT 260 x10^3/uL (140-400); RED CELL DISTRIBUTION WIDTH 16.8 % (11.5-14.5); WHITE BLOOD COUNT 4.7 x10^3/uL (4.0-11.0)
[2018-12-10 13:02] LABS: ALBUMIN 3.8 g/dL (3.4-5.0); ALBUMIN/GLOBULIN RATIO 1.5 (1.0-1.7); CALCIUM 9.1 mg/dL (8.5-10.1); CREATININE 1.8 mg/dL (0.6-1.0); POTASSIUM 4.2 mmol/L (3.5-5.1); TOTAL BILIRUBIN 0.6 mg/dL (0.2-1.0); TOTAL PROTEIN 6.4 g/dL (6.4-8.2)
[2018-12-10 17:31] VITALS: BP 115/56
[2018-12-11] MEDS: LACTOBACILLUS RHAMNOSUS GG 1 CAPSULE. PO SCH ×2 (08:09→19:47)
[2018-12-11] MEDS: ACETAMINOPHEN 325 MG TABLET PO SCH ×3 (08:09→19:47)
[2018-12-11] MEDS: FUROSEMIDE 20 MG TABLET PO SCH (08:09)
[2018-12-11] MEDS: SERTRALINE 25 MG TABLET. PO SCH (08:09)
[2018-12-11] MEDS: metFORMIN 500 MG TABLET PO SCH ×2 (08:09→17:32)
[2018-12-11] MEDS: ASPIRIN ENTERIC COATED 325 MG TABLET.DR. PO SCH (08:09)
[2018-12-11] MEDS: ARIPiprazole 5 MG TABLET PO SCH ×2 (08:10→13:25)
[2018-12-11] MEDS: SMZ/TMP 800/160MG TABLET. PO SCH ×2 (08:10→19:52)
[2018-12-11] MEDS: MELOXICAM 7.5 MG TABLET PO SCH (08:10)
[2018-12-11] MEDS: POLYETHYLENE GLYCOL 3350 17 GM PACKET. PO SCH (08:10)
[2018-12-11] MEDS: CHOLECALCIFEROL (VITAMIN D3) 1,000 UNIT TABLET PO SCH (08:10)
[2018-12-11] MEDS: NYSTATIN TOPICAL POWDER 15GM BOTTLE. TP SCH ×2 (08:11→19:52)
[2018-12-11] MEDS: DICLOFENAC SODIUM 1% TOPICAL GEL 100GM TUBE. TP SCH ×4 (08:11→19:52)
[2018-12-11] MEDS: ZONISAMIDE 100 MG CAPSULE. PO SCH ×2 (08:13→19:52)
[2018-12-11] MEDS: METHYLPHENIDATE HCL 5 MG TABLET PO SCH (08:13)
[2018-12-11 10:48] VITALS: BP 113/70
[2018-12-11 16:33] VITALS: BP 116/74
--- NOTE | 2018-12-12 02:12 | PN ---
DATE: 12/11/2018 SUBJECTIVE: The patient was seen today, met with the staff, chart reviewed. The patient continues to exhibit behavior problems and also cognitive deficits, emotional lability. OBSERVATION: VITAL SIGNS: Temperature 97.3, blood pressure 116/74, pulse 85, respirations 17, O2 sat 96%. The patient's sleep and appetite have improved. MEDICATIONS: The patient's current medications include Zoloft and Abilify not having any side effects. No falls. ASSESSMENT: Major depressive disorder, recurrent; cognitive disorder, mild. PLAN: To continue with the treatment. DONTAE SINGH MD DR: BARBARA/nts JOB#: [id number] / [id number]
[2018-12-12 06:08] VITALS: BP 116/68
[2018-12-12] MEDS: ARIPiprazole 5 MG TABLET PO SCH ×2 (07:25→11:47)
[2018-12-12] MEDS: POLYETHYLENE GLYCOL 3350 17 GM PACKET. PO SCH (07:25)
[2018-12-12] MEDS: CHOLECALCIFEROL (VITAMIN D3) 1,000 UNIT TABLET PO SCH (07:25)
[2018-12-12] MEDS: SMZ/TMP 800/160MG TABLET. PO SCH ×2 (07:25→20:03)
[2018-12-12] MEDS: ASPIRIN ENTERIC COATED 325 MG TABLET.DR. PO SCH (07:25)
[2018-12-12] MEDS: ZONISAMIDE 100 MG CAPSULE. PO SCH ×2 (07:25→20:05)
[2018-12-12] MEDS: metFORMIN 500 MG TABLET PO SCH ×2 (07:26→16:48)
[2018-12-12] MEDS: ACETAMINOPHEN 325 MG TABLET PO SCH ×3 (07:26→20:03)
[2018-12-12] MEDS: MELOXICAM 7.5 MG TABLET PO SCH (07:26)
[2018-12-12] MEDS: SERTRALINE 25 MG TABLET. PO SCH (07:26)
[2018-12-12] MEDS: LACTOBACILLUS RHAMNOSUS GG 1 CAPSULE. PO SCH ×2 (07:26→20:03)
[2018-12-12] MEDS: FUROSEMIDE 20 MG TABLET PO SCH (07:26)
[2018-12-12] MEDS: METHYLPHENIDATE HCL 5 MG TABLET PO SCH (07:28)
[2018-12-12] MEDS: NYSTATIN TOPICAL POWDER 15GM BOTTLE. TP SCH ×2 (07:53→20:05)
[2018-12-12] MEDS: DICLOFENAC SODIUM 1% TOPICAL GEL 100GM TUBE. TP SCH ×4 (07:53→20:05)
[2018-12-12 16:18] VITALS: BP 117/72
[2018-12-12] MEDS ORDERED: DEXTROSE 50% 25 GM / 50ML DISP.SYRIN. IV PRN (18:30)
--- NOTE | 2018-12-13 03:10 | PN ---
DATE: 12/12/2018 30SUBJECTIVE: The patient was seen today and met with the staff. The patient continues to have problems with increased agitation and mood swings. OBSERVATION: VITAL SIGNS: Temperature 96.9, blood pressure 116/68, pulse 88, respirations 18, O2 sat 96%. GENERAL: Slept about 6 hours last night. The patient's appetite is fair. The patient is not having any physical complaints. MEDICATIONS: The patient will continue on his medications including Zoloft, Abilify. ASSESSMENT: 1. Major depressive disorder, recurrent. 2. Cognitive disorder, mild. PLAN: To continue with the treatment. DONTAE SINGH MD DR: BARBARA/kwasi JOB#: [id number] / [id number]
[2018-12-13 06:00] VITALS: BP 117/68
[2018-12-13] MEDS: INSULIN LISPRO 300 UNITS/3 ML INSULN.PEN. SQ SCH ×3 (07:37→17:47)
[2018-12-13] MEDS: POLYETHYLENE GLYCOL 3350 17 GM PACKET. PO SCH (08:14)
[2018-12-13] MEDS: ACETAMINOPHEN 325 MG TABLET PO SCH ×3 (08:14→20:09)
[2018-12-13] MEDS: SERTRALINE 25 MG TABLET. PO SCH (08:14)
[2018-12-13] MEDS: CHOLECALCIFEROL (VITAMIN D3) 1,000 UNIT TABLET PO SCH (08:14)
[2018-12-13] MEDS: ARIPiprazole 5 MG TABLET PO SCH ×2 (08:14→12:06)
[2018-12-13] MEDS: MELOXICAM 7.5 MG TABLET PO SCH (08:15)
[2018-12-13] MEDS: ASPIRIN ENTERIC COATED 325 MG TABLET.DR. PO SCH (08:15)
[2018-12-13] MEDS: SMZ/TMP 800/160MG TABLET. PO SCH (08:15)
[2018-12-13] MEDS: LACTOBACILLUS RHAMNOSUS GG 1 CAPSULE. PO SCH ×2 (08:15→20:10)
[2018-12-13] MEDS: FUROSEMIDE 20 MG TABLET PO SCH (08:15)
[2018-12-13] MEDS: ZONISAMIDE 100 MG CAPSULE. PO SCH ×2 (08:15→20:11)
[2018-12-13] MEDS: METHYLPHENIDATE HCL 5 MG TABLET PO SCH (08:17)
[2018-12-13] MEDS: NYSTATIN TOPICAL POWDER 15GM BOTTLE. TP SCH ×2 (08:18→20:09)
[2018-12-13] MEDS: DICLOFENAC SODIUM 1% TOPICAL GEL 100GM TUBE. TP SCH ×5 (08:18→20:09)
[2018-12-13 08:46] LABS: CALCIUM 9.2 mg/dL (8.5-10.1); CREATININE 1.5 mg/dL (0.6-1.0); GFR 34.5
[2018-12-13 08:53] LABS: POTASSIUM 4.4 mmol/L (3.5-5.1)
[2018-12-13 16:51] VITALS: BP 98/65
--- NOTE | 2018-12-13 20:56 | PN ---
DATE: 12/13/2018 SUBJECTIVE: The patient was seen today, met with the staff, chart reviewed. The patient continues to have behavior problems including increased agitation, mood swings and difficult to redirect. OBSERVATION: VITAL SIGNS: Temperature 97.9, blood pressure 117/68, pulse 92, respirations 20, O2 sat 96%. Slept about 6 hours last night. The patient's appetite is fair. MEDICATIONS: The patient's current medications include Zoloft 75 mg daily, Abilify 2.5 mg noon and 5 mg daily. The patient is not having any side effects. The patient has not had any falls. ASSESSMENT: 1. Major depression, recurrent. 2. Cognitive disorder, mild. PLAN: To continue with the treatment. DONTAE SINGH MD DR: BARBARA/kwasi JOB#: [id number] / [id number]
[2018-12-14 05:36] VITALS: BP 121/70
[2018-12-14] MEDS: FUROSEMIDE 20 MG TABLET PO SCH (09:12)
[2018-12-14] MEDS: ARIPiprazole 5 MG TABLET PO SCH ×2 (09:12→13:16)
[2018-12-14] MEDS: SERTRALINE 25 MG TABLET. PO SCH (09:12)
[2018-12-14] MEDS: ACETAMINOPHEN 325 MG TABLET PO SCH ×3 (09:13→19:37)
[2018-12-14] MEDS: ASPIRIN ENTERIC COATED 325 MG TABLET.DR. PO SCH (09:13)
[2018-12-14] MEDS: CHOLECALCIFEROL (VITAMIN D3) 1,000 UNIT TABLET PO SCH (09:13)
[2018-12-14] MEDS: LACTOBACILLUS RHAMNOSUS GG 1 CAPSULE. PO SCH ×2 (09:14→19:37)
[2018-12-14] MEDS: MELOXICAM 7.5 MG TABLET PO SCH (09:14)
[2018-12-14] MEDS: POLYETHYLENE GLYCOL 3350 17 GM PACKET. PO SCH (09:15)
[2018-12-14] MEDS: ZONISAMIDE 100 MG CAPSULE. PO SCH ×2 (09:36→19:39)
[2018-12-14] MEDS: NYSTATIN TOPICAL POWDER 15GM BOTTLE. TP SCH ×2 (09:37→19:38)
[2018-12-14] MEDS: DICLOFENAC SODIUM 1% TOPICAL GEL 100GM TUBE. TP SCH ×4 (09:37→19:38)
[2018-12-14] MEDS: METHYLPHENIDATE HCL 5 MG TABLET PO SCH (09:38)
[2018-12-14] MEDS: INSULIN LISPRO 300 UNITS/3 ML INSULN.PEN. SQ SCH ×3 (09:39→17:57)
--- NOTE | 2018-12-14 22:47 | PDOC ---
Exam Note: Bala Note: Please also refer to the separate dictated note~for this date of service dictated separately.~Patient seen individually. Discussed the patient with Nursing staff reviewed the chart.~Reviewed interim history and current functioning. Reviewed vital signs,~Labs/ Radiology~and current medications noted below. Continue current treatment with the changes noted in the dictated addendum note Assessment: Vital Signs: Vital Signs Date Time Temp Pulse Resp B/P (MAP) Pulse Ox O2 Delivery O2 Flow Rate FiO2 12/14/18 05:36 97.3 60 16 121/70 (87) 97 12/13/18 16:51 Room Air I&O Intake and Output 12/14/18 07:00 Intake Total 1100 ml Balance 1100 ml Intake Oral 1100 ml Labs: Laboratory Tests Test 12/14/18 07:08 12/14/18 11:35 12/14/18 16:39 12/14/18 19:16 Glucose (Fingerstick) 157 mg/dL (70-99) H 164 mg/dL (70-99) H 159 mg/dL (70-99) H 214 mg/dL (70-99) H Current Medications: Meds: Current Medications Ceftriaxone Sodium 1 gm/ Sodium Chloride 50 ml @ 100 mls/hr 1X ONCE IV ; Start 12/02/18 at 16:30; Stop 12/02/18 at 16:59; Status UNV Ceftriaxone Sodium (Rocephin Im) 1 gm 1X ONCE IM Last administered on at 16:34; Start 12/02/18 at 16:45; Stop 12/02/18 at 16:46; Status DC Lidocaine HCl 20 ml STK-MED ONCE .ROUTE ; Start 12/02/18 at 16:27; Stop 12/02/18 at 16:28; Status DC Acetaminophen (Tylenol) 650 mg PRN Q6HRS PRN PO PAIN / TEMP; Start 12/02/18 at 18:00 Multi-Ingredient Ointment (Analgesic [place]) 1 andrew PRN QID PRN TP MUSCLE PAIN; Start 12/02/18 at 18:00 Al Hydroxide/Mg Hydroxide (Mylanta Plus Xs) 15 ml PRN AFTMEALHC PRN PO DYSPEPSIA; Start 12/02/18 at 18:00 Magnesium Hydroxide (Milk Of Magnesia) 2,400 mg PRN QHS PRN PO CONSTIPATION; Start 12/02/18 at 18:00 Acetaminophen (Tylenol) 325 mg 1400 PO Last administered on 12/14/18at 13:16; Start 12/03/18 at 14:00 Acetaminophen (Tylenol) 325 mg PRN Q6HRS PRN PO PAIN; Start 12/02/18 at 21:00; Stop 12/02/18 at 21:18; Status DC Acetaminophen (Tylenol) 650 mg BID PO Last administered on 12/14/18at 19:37; Start 12/02/18 at 21:00 Aspirin (Aspirin Enteric Coated) 325 mg DAILY PO Last administered on at 09:13; Start 12/03/18 at 09:00 Citalopram Hydrobromide (CeleXA) 20 mg DAILY PO Last administered on 12/03/18at 08:20; Start 12/03/18 at 09:00; Stop 12/03/18 at 17:56; Status DC Diclofenac Sodium (Voltaren) 100 andrew QID TP ; Start 12/02/18 at 21:00; Stop at 13:10; Status DC Furosemide (Lasix) 20 mg DAILY PO Last administered on 12/14/18at 09:12; Start 12/03/18 at 09:00 Lidocaine/ Prilocaine (Emla) 5 andrew PRN TID PRN TP PAIN; Start 12/02/18 at 21:00 Nystatin (Nystop) 15 andrew BID TP Last administered on 12/03/18at 08:22; Start 12/02 at 21:00; Stop 12/04/18 at 07:51; Status DC Sodium Fluoride (Sf 5000 Plus) 51 andrew BID DT ; Start 12/02/18 at 21:00; Stop 12/02 at 21:18; Status DC Aripiprazole (Abilify) 5 mg 1800 PO Last administered on 12/03/18at 17:09; Start 12/03/18 at 18:00; Stop 12/03/18 at 18:00; Status DC Vitamin D (Vitamin D3) 1,000 unit DAILY PO Last administered on 12/14/18at 09:13 ; Start 12/03/18 at 09:00 Non-Formulary Medication (Cranberry Extract (Cranberry)) 200 mg DAILY PO ; Start 12/03/18 at 09:00; Stop 12/03/18 at 09:00; Status DC Levetiracetam (Keppra) 500 mg BID PO ; Start 12/03/18 at 09:00; Stop 12/03/18 at 09:00; Status DC Non-Formulary Medication (Magnesium Hydroxide (Milk Of Magnesia)) 2,400 mg PRN QHS PRN PO CONSTIPATION; Start 12/02/18 at 21:00; Stop 12/02/18 at 21:08; Status DC Meloxicam (Mobic) 7.5 mg DAILY PO Last administered on 12/14/18at 09:14; Start 12/03/18 at 09:00 Metformin HCl (Glucophage) 1,000 mg DAILYWBKFT PO Last administered on at 07:26; Start 12/03/18 at 08:00; Stop 12/12/18 at 18:25; Status DC Metformin HCl (Glucophage) 500 mg DAILYBFRSUP PO Last administered on 17:32; Start 12/03/18 at 17:00; Stop 12/12/18 at 18:25; Status DC Methylphenidate HCl (Methylphenidate HCl) 5 mg DAILY PO Last administered on at 09:38; Start 12/03/18 at 09:00 Polyethylene Glycol (miraLAX) 17 gm DAILY PO Last administered on 12/14/18 09: 15; Start 12/03/18 at 09:00 Levetiracetam (Keppra) 500 mg BID PO Last administered on 12/03/18 08:21; Start 12/02/18 at 21:45; Stop 12/03/18 at 13:47; Status DC Diclofenac Sodium (Voltaren) 1 andrew QID TP Last administered on 12/14/18at 17:00 ; Start 12/03/18 at 17:00 Zonisamide (Zonegran) 100 mg BID PO Last administered on 12/14/18at 19:39; Start 12/03/18 at 21:00 Aripiprazole (Abilify) 5 mg DAILY PO Last administered on 12/14/18 09:12; Start 12/04/18 at 09:00 Sertraline HCl (Zoloft) 50 mg DAILY PO Last administered on 12/06/18at 09:01; Start 12/04/18 at 09:00; Stop 12/06/18 at 21:00; Status DC Nystatin (Nystop) 1 andrew BID TP Last administered on 12/14/18at 19:38; Start 12/04 at 09:00 Sertraline HCl (Zoloft) 75 mg DAILY PO Last administered on 12/14/18at 09:12; Start 12/07/18 at 09:00 Trimethoprim/ Sulfamethoxazole (Bactrim Ds) 1 tab BID PO Last administered on at 08:15; Start 12/06/18 at 21:00; Stop 12/13/18 at 20:59; Status DC Lactobacillus Rhamnosus (Culturelle) 1 cap BID PO Last administered on at 19:37; Start 12/06/18 at 21:00 Aripiprazole (Abilify) 2.5 mg NOON PO Last administered on 12/14/18at 13:16; Start 12/08/18 at 12:00 Insulin Human Lispro (HumaLOG) 0-5 UNITS TIDWMEALS SQ Last administered on 12/14at 17:57; Start 12/13/18 at 08:00 Dextrose 12.5 gm PRN Q15MIN PRN IV SEE COMMENTS; Start 12/12/18 at 18:30 Active Scripts Active Reported Tylenol (Acetaminophen) 325 Mg Tablet 325 Mg PO PRN Q6HRS PRN Tylenol (Acetaminophen) 325 Mg Tablet 650 Mg PO BID Tylenol (Acetaminophen) 325 Mg Tablet 325 Mg PO 1400 Polyethylene Glycol 3350 255 Gm Powder 17 Gm PO DAILY Nystatin 15 Gm Powder 15 Gm TP BID Ritalin (Methylphenidate Hcl) 5 Mg Tablet 5 Mg PO DAILY Glucophage (Metformin Hcl) 500 Mg Tablet 500 Mg PO DAILYBFRSUP Metformin Hcl 1,000 Mg Tablet 1,000 Mg PO DAILYWBKFT Milk Of Magnesia (Magnesium Hydroxide) 2,400 Mg/10 Ml Oral.susp 2,400 Mg PO PRN QHS PRN Meloxicam 7.5 Mg Tablet 7.5 Mg PO DAILY Lidocaine-Prilocaine Cream (Lidocaine/Prilocaine) 30 Gm Cream..g. 30 Gm TP PRN TID PRN Keppra (Levetiracetam) 500 Mg Tablet 500 Mg PO BID Lasix (Furosemide) 20 Mg Tablet 20 Mg PO DAILY Prevident 5000 Plus (Sodium Fluoride) 51 Gm Cream..g. 51 Gm DT BID Voltaren (Diclofenac Sodium) 100 Gm Gel..gram. 100 Gm TP QID Cranberry (Cranberry Extract) 200 Mg Capsule 200 Mg PO DAILY Citalopram Hbr (Citalopram Hydrobromide) 20 Mg Tablet 20 Mg PO DAILY Vitamin D (Cholecalciferol (Vitamin D3)) 1,000 Unit Capsule 1,000 Unit PO DAILY Aspirin Ec (Aspirin) 325 Mg Tablet. 325 Mg PO DAILY Abilify (Aripiprazole) 5 Mg Tablet 5 Mg PO 1800 I have reviewed the current psychotropics carefully including drug interactions. Risk benefit ratio favors no change other than as noted in my dictated progress note. Diagnosis: Problems: (1) Anxiety disorder (2) Impulse control disorder (3) Major depressive disorder, recurrent episode (4) Mild cognitive disorder ILENE LANG MD Dec 14, 2018 22:47
--- NOTE | 2018-12-15 03:52 | PN ---
DATE: 12/14/2018 SUBJECTIVE: The patient was seen today, met with the staff, chart reviewed. The patient's behavior remains the same. The patient continues to be irritable, daly, agitated easily. The patient has significant problems with her cognition at times, increased confusion. OBSERVATION: VITAL SIGNS: Temperature 97.3, blood pressure 120/70, pulse 60, respirations 16, O2 sat 97%. Slept about 5 hours last night. MEDICATIONS: The patient's current medications include Zoloft 75 mg daily, Abilify 2.5 mg at noon and 5 mg at night. She is not having any side effects and has not had any falls. ASSESSMENT: 1. Major depression, recurrent. 2. Cognitive disorder, mild. PLAN: To continue with the treatment. DONTAE SINGH MD DR: BARBARA/kwasi JOB#: [id number] / [id number]
[2018-12-15 06:32] VITALS: BP 103/59
[2018-12-15] MEDS: FUROSEMIDE 20 MG TABLET PO SCH (07:32)
[2018-12-15] MEDS: MELOXICAM 7.5 MG TABLET PO SCH (07:32)
[2018-12-15] MEDS: POLYETHYLENE GLYCOL 3350 17 GM PACKET. PO SCH (07:32)
[2018-12-15] MEDS: LACTOBACILLUS RHAMNOSUS GG 1 CAPSULE. PO SCH ×2 (07:32→19:34)
[2018-12-15] MEDS: ARIPiprazole 5 MG TABLET PO SCH ×2 (07:32→11:18)
[2018-12-15] MEDS: CHOLECALCIFEROL (VITAMIN D3) 1,000 UNIT TABLET PO SCH (07:32)
[2018-12-15] MEDS: ACETAMINOPHEN 325 MG TABLET PO SCH ×3 (07:33→19:34)
[2018-12-15] MEDS: SERTRALINE 25 MG TABLET. PO SCH (07:33)
[2018-12-15] MEDS: ASPIRIN ENTERIC COATED 325 MG TABLET.DR. PO SCH (07:33)
[2018-12-15] MEDS: NYSTATIN TOPICAL POWDER 15GM BOTTLE. TP SCH ×2 (07:35→19:33)
[2018-12-15] MEDS: DICLOFENAC SODIUM 1% TOPICAL GEL 100GM TUBE. TP SCH ×4 (07:35→19:33)
[2018-12-15] MEDS: ZONISAMIDE 100 MG CAPSULE. PO SCH ×2 (07:36→19:35)
[2018-12-15] MEDS: METHYLPHENIDATE HCL 5 MG TABLET PO SCH (07:37)
[2018-12-15] MEDS: INSULIN LISPRO 300 UNITS/3 ML INSULN.PEN. SQ SCH ×3 (08:31→17:24)
[2018-12-15 17:42] VITALS: BP 123/78
--- NOTE | 2018-12-15 22:20 | PDOC ---
Exam Note: Bala Note: "This is a late entry for 12/14/18. The template note for 12/14/18 was completed in error and should be disregarded." Please also refer to the separate dictated note~for this date of service dictated separately.~Patient seen individually. Discussed the patient with Nursing staff reviewed the chart.~ Reviewed interim history and current functioning. Reviewed vital signs,~Labs/ Radiology~and current medications noted below. Continue current treatment with the changes noted in the dictated addendum note Assessment: Vital Signs: Vital Signs Date Time Temp Pulse Resp B/P (MAP) Pulse Ox O2 Delivery O2 Flow Rate FiO2 12/15/18 17:42 98.5 82 22 123/78 (93) 98 12/13/18 16:51 Room Air I&O Intake and Output 12/15/18 07:00 Intake Total 600 ml Balance 600 ml Intake Oral 600 ml # Bowel Movements 1 Labs: Laboratory Tests Test 12/15/18 07:28 12/15/18 12:06 12/15/18 17:18 12/15/18 19:04 Glucose (Fingerstick) 159 mg/dL (70-99) H 136 mg/dL (70-99) H 172 mg/dL (70-99) H 197 mg/dL (70-99) H Current Medications: Meds: Current Medications Ceftriaxone Sodium 1 gm/ Sodium Chloride 50 ml @ 100 mls/hr 1X ONCE IV ; Start 12/02/18 at 16:30; Stop 12/02/18 at 16:59; Status UNV Ceftriaxone Sodium (Rocephin Im) 1 gm 1X ONCE IM Last administered on at 16:34; Start 12/02/18 at 16:45; Stop 12/02/18 at 16:46; Status DC Lidocaine HCl 20 ml STK-MED ONCE .ROUTE ; Start 12/02/18 at 16:27; Stop 12/02/18 at 16:28; Status DC Acetaminophen (Tylenol) 650 mg PRN Q6HRS PRN PO PAIN / TEMP; Start 12/02/18 at 18:00 Multi-Ingredient Ointment (Analgesic [place]) 1 andrew PRN QID PRN TP MUSCLE PAIN; Start 12/02/18 at 18:00 Al Hydroxide/Mg Hydroxide (Mylanta Plus Xs) 15 ml PRN AFTMEALHC PRN PO DYSPEPSIA; Start 12/02/18 at 18:00 Magnesium Hydroxide (Milk Of Magnesia) 2,400 mg PRN QHS PRN PO CONSTIPATION; Start 12/02/18 at 18:00 Acetaminophen (Tylenol) 325 mg 1400 PO Last administered on 12/15/18at 14:08; Start 12/03/18 at 14:00 Acetaminophen (Tylenol) 325 mg PRN Q6HRS PRN PO PAIN; Start 12/02/18 at 21:00; Stop 12/02/18 at 21:18; Status DC Acetaminophen (Tylenol) 650 mg BID PO Last administered on 12/15/18at 19:34; Start 12/02/18 at 21:00 Aspirin (Aspirin Enteric Coated) 325 mg DAILY PO Last administered on at 07:33; Start 12/03/18 at 09:00 Citalopram Hydrobromide (CeleXA) 20 mg DAILY PO Last administered on 12/03/18at 08:20; Start 12/03/18 at 09:00; Stop 12/03/18 at 17:56; Status DC Diclofenac Sodium (Voltaren) 100 andrew QID TP ; Start 12/02/18 at 21:00; Stop at 13:10; Status DC Furosemide (Lasix) 20 mg DAILY PO Last administered on 12/15/18at 07:32; Start 12/03/18 at 09:00 Lidocaine/ Prilocaine (Emla) 5 andrew PRN TID PRN TP PAIN; Start 12/02/18 at 21:00 Nystatin (Nystop) 15 andrew BID TP Last administered on 12/03/18at 08:22; Start 12/02 at 21:00; Stop 12/04/18 at 07:51; Status DC Sodium Fluoride (Sf 5000 Plus) 51 andrew BID DT ; Start 12/02/18 at 21:00; Stop 12/02 at 21:18; Status DC Aripiprazole (Abilify) 5 mg 1800 PO Last administered on 12/03/18at 17:09; Start 12/03/18 at 18:00; Stop 12/03/18 at 18:00; Status DC Vitamin D (Vitamin D3) 1,000 unit DAILY PO Last administered on 12/15/18at 07:32 ; Start 12/03/18 at 09:00 Non-Formulary Medication (Cranberry Extract (Cranberry)) 200 mg DAILY PO ; Start 12/03/18 at 09:00; Stop 12/03/18 at 09:00; Status DC Levetiracetam (Keppra) 500 mg BID PO ; Start 12/03/18 at 09:00; Stop 12/03/18 at 09:00; Status DC Non-Formulary Medication (Magnesium Hydroxide (Milk Of Magnesia)) 2,400 mg PRN QHS PRN PO CONSTIPATION; Start 12/02/18 at 21:00; Stop 12/02/18 at 21:08; Status DC Meloxicam (Mobic) 7.5 mg DAILY PO Last administered on 12/15/18at 07:32; Start 12/03/18 at 09:00 Metformin HCl (Glucophage) 1,000 mg DAILYWBKFT PO Last administered on at 07:26; Start 12/03/18 at 08:00; Stop 12/12/18 at 18:25; Status DC Metformin HCl (Glucophage) 500 mg DAILYBFRSUP PO Last administered on at 17:32; Start 12/03/18 at 17:00; Stop 12/12/18 at 18:25; Status DC Methylphenidate HCl (Methylphenidate HCl) 5 mg DAILY PO Last administered on at 07:37; Start 12/03/18 at 09:00 Polyethylene Glycol (miraLAX) 17 gm DAILY PO Last administered on 12/15/18at 07: 32; Start 12/03/18 at 09:00 Levetiracetam (Keppra) 500 mg BID PO Last administered on 12/03/18at 08:21; Start 12/02/18 at 21:45; Stop 12/03/18 at 13:47; Status DC Diclofenac Sodium (Voltaren) 1 andrew QID TP Last administered on 12/15/18 19:33 ; Start 12/03/18 at 17:00 Zonisamide (Zonegran) 100 mg BID PO Last administered on 12/15/18 19:35; Start 12/03/18 at 21:00 Aripiprazole (Abilify) 5 mg DAILY PO Last administered on 12/15/18at 07:32; Start 12/04/18 at 09:00 Sertraline HCl (Zoloft) 50 mg DAILY PO Last administered on 12/06/18at 09:01; Start 12/04/18 at 09:00; Stop 12/06/18 at 21:00; Status DC Nystatin (Nystop) 1 andrew BID TP Last administered on 12/15/18at 19:33; Start 12/04 at 09:00 Sertraline HCl (Zoloft) 75 mg DAILY PO Last administered on 12/15/18at 07:33; Start 12/07/18 at 09:00; Stop 12/15/18 at 17:06; Status DC Trimethoprim/ Sulfamethoxazole (Bactrim Ds) 1 tab BID PO Last administered on at 08:15; Start 12/06/18 at 21:00; Stop 12/13/18 at 20:59; Status DC Lactobacillus Rhamnosus (Culturelle) 1 cap BID PO Last administered on at 19:34; Start 12/06/18 at 21:00 Aripiprazole (Abilify) 2.5 mg NOON PO Last administered on 12/15/18at 11:18; Start 12/08/18 at 12:00 Insulin Human Lispro (HumaLOG) 0-5 UNITS TIDWMEALS SQ Last administered on 12/15at 17:24; Start 12/13/18 at 08:00 Dextrose 12.5 gm PRN Q15MIN PRN IV SEE COMMENTS; Start 12/12/18 at 18:30 Sertraline HCl (Zoloft) 100 mg DAILY PO ; Start 12/16/18 at 09:00 Active Scripts Active Reported Tylenol (Acetaminophen) 325 Mg Tablet 325 Mg PO PRN Q6HRS PRN Tylenol (Acetaminophen) 325 Mg Tablet 650 Mg PO BID Tylenol (Acetaminophen) 325 Mg Tablet 325 Mg PO 1400 Polyethylene Glycol 3350 255 Gm Powder 17 Gm PO DAILY Nystatin 15 Gm Powder 15 Gm TP BID Ritalin (Methylphenidate Hcl) 5 Mg Tablet 5 Mg PO DAILY Glucophage (Metformin Hcl) 500 Mg Tablet 500 Mg PO DAILYBFRSUP Metformin Hcl 1,000 Mg Tablet 1,000 Mg PO DAILYWBKFT Milk Of Magnesia (Magnesium Hydroxide) 2,400 Mg/10 Ml Oral.susp 2,400 Mg PO PRN QHS PRN Meloxicam 7.5 Mg Tablet 7.5 Mg PO DAILY Lidocaine-Prilocaine Cream (Lidocaine/Prilocaine) 30 Gm Cream..g. 30 Gm TP PRN TID PRN Keppra (Levetiracetam) 500 Mg Tablet 500 Mg PO BID Lasix (Furosemide) 20 Mg Tablet 20 Mg PO DAILY Prevident 5000 Plus (Sodium Fluoride) 51 Gm Cream..g. 51 Gm DT BID Voltaren (Diclofenac Sodium) 100 Gm Gel..gram. 100 Gm TP QID Cranberry (Cranberry Extract) 200 Mg Capsule 200 Mg PO DAILY Citalopram Hbr (Citalopram Hydrobromide) 20 Mg Tablet 20 Mg PO DAILY Vitamin D (Cholecalciferol (Vitamin D3)) 1,000 Unit Capsule 1,000 Unit PO DAILY Aspirin Ec (Aspirin) 325 Mg Tablet.dr 325 Mg PO DAILY Abilify (Aripiprazole) 5 Mg Tablet 5 Mg PO 1800 I have reviewed the current psychotropics carefully including drug interactions. Risk benefit ratio favors no change other than as noted in my dictated progress note. Diagnosis: Problems: (1) Anxiety disorder (2) Impulse control disorder (3) Major depressive disorder, recurrent episode (4) Mild cognitive disorder ILENE LANG MD Dec 15, 2018 22:20
--- NOTE | 2018-12-15 23:08 | PDOC ---
Exam Note: Bala Note: Please also refer to the separate dictated note~for this date of service dictated separately.~Patient seen individually. Discussed the patient with Nursing staff reviewed the chart.~Reviewed interim history and current functioning. Reviewed vital signs,~Labs/ Radiology~and current medications noted below. Continue current treatment with the changes noted in the dictated addendum note Assessment: Vital Signs: Vital Signs Date Time Temp Pulse Resp B/P (MAP) Pulse Ox O2 Delivery O2 Flow Rate FiO2 12/15/18 17:42 98.5 82 22 123/78 (93) 98 12/13/18 16:51 Room Air I&O Intake and Output 12/15/18 07:00 Intake Total 600 ml Balance 600 ml Intake Oral 600 ml # Bowel Movements 1 Labs: Laboratory Tests Test 12/15/18 07:28 12/15/18 12:06 12/15/18 17:18 12/15/18 19:04 Glucose (Fingerstick) 159 mg/dL (70-99) H 136 mg/dL (70-99) H 172 mg/dL (70-99) H 197 mg/dL (70-99) H Current Medications: Meds: Current Medications Ceftriaxone Sodium 1 gm/ Sodium Chloride 50 ml @ 100 mls/hr 1X ONCE IV ; Start 12/02/18 at 16:30; Stop 12/02/18 at 16:59; Status UNV Ceftriaxone Sodium (Rocephin Im) 1 gm 1X ONCE IM Last administered on at 16:34; Start 12/02/18 at 16:45; Stop 12/02/18 at 16:46; Status DC Lidocaine HCl 20 ml STK-MED ONCE .ROUTE ; Start 12/02/18 at 16:27; Stop 12/02/18 at 16:28; Status DC Acetaminophen (Tylenol) 650 mg PRN Q6HRS PRN PO PAIN / TEMP; Start 12/02/18 at 18:00 Multi-Ingredient Ointment (Analgesic [place]) 1 andrew PRN QID PRN TP MUSCLE PAIN; Start 12/02/18 at 18:00 Al Hydroxide/Mg Hydroxide (Mylanta Plus Xs) 15 ml PRN AFTMEALHC PRN PO DYSPEPSIA; Start 12/02/18 at 18:00 Magnesium Hydroxide (Milk Of Magnesia) 2,400 mg PRN QHS PRN PO CONSTIPATION; Start 12/02/18 at 18:00 Acetaminophen (Tylenol) 325 mg 1400 PO Last administered on 12/15/18at 14:08; Start 12/03/18 at 14:00 Acetaminophen (Tylenol) 325 mg PRN Q6HRS PRN PO PAIN; Start 12/02/18 at 21:00; Stop 12/02/18 at 21:18; Status DC Acetaminophen (Tylenol) 650 mg BID PO Last administered on 12/15/18at 19:34; Start 12/02/18 at 21:00 Aspirin (Aspirin Enteric Coated) 325 mg DAILY PO Last administered on at 07:33; Start 12/03/18 at 09:00 Citalopram Hydrobromide (CeleXA) 20 mg DAILY PO Last administered on 12/03/18at 08:20; Start 12/03/18 at 09:00; Stop 12/03/18 at 17:56; Status DC Diclofenac Sodium (Voltaren) 100 andrew QID TP ; Start 12/02/18 at 21:00; Stop at 13:10; Status DC Furosemide (Lasix) 20 mg DAILY PO Last administered on 12/15/18at 07:32; Start 12/03/18 at 09:00 Lidocaine/ Prilocaine (Emla) 5 andrew PRN TID PRN TP PAIN; Start 12/02/18 at 21:00 Nystatin (Nystop) 15 andrew BID TP Last administered on 12/03/18at 08:22; Start 12/02 at 21:00; Stop 12/04/18 at 07:51; Status DC Sodium Fluoride (Sf 5000 Plus) 51 andrew BID DT ; Start 12/02/18 at 21:00; Stop 12/02 at 21:18; Status DC Aripiprazole (Abilify) 5 mg 1800 PO Last administered on 12/03/18at 17:09; Start 12/03/18 at 18:00; Stop 12/03/18 at 18:00; Status DC Vitamin D (Vitamin D3) 1,000 unit DAILY PO Last administered on 12/15/18at 07:32 ; Start 12/03/18 at 09:00 Non-Formulary Medication (Cranberry Extract (Cranberry)) 200 mg DAILY PO ; Start 12/03/18 at 09:00; Stop 12/03/18 at 09:00; Status DC Levetiracetam (Keppra) 500 mg BID PO ; Start 12/03/18 at 09:00; Stop 12/03/18 at 09:00; Status DC Non-Formulary Medication (Magnesium Hydroxide (Milk Of Magnesia)) 2,400 mg PRN QHS PRN PO CONSTIPATION; Start 12/02/18 at 21:00; Stop 12/02/18 at 21:08; Status DC Meloxicam (Mobic) 7.5 mg DAILY PO Last administered on 12/15/18 07:32; Start 12/03/18 at 09:00 Metformin HCl (Glucophage) 1,000 mg DAILYWBKFT PO Last administered on 07:26; Start 12/03/18 at 08:00; Stop 12/12/18 at 18:25; Status DC Metformin HCl (Glucophage) 500 mg DAILYBFRSUP PO Last administered on at 17:32; Start 12/03/18 at 17:00; Stop 12/12/18 at 18:25; Status DC Methylphenidate HCl (Methylphenidate HCl) 5 mg DAILY PO Last administered on at 07:37; Start 12/03/18 at 09:00 Polyethylene Glycol (miraLAX) 17 gm DAILY PO Last administered on 12/15/18at 07: 32; Start 12/03/18 at 09:00 Levetiracetam (Keppra) 500 mg BID PO Last administered on 12/03/18 08:21; Start 12/02/18 at 21:45; Stop 12/03/18 at 13:47; Status DC Diclofenac Sodium (Voltaren) 1 andrew QID TP Last administered on 12/15/18 19:33 ; Start 12/03/18 at 17:00 Zonisamide (Zonegran) 100 mg BID PO Last administered on 12/15/18 19:35; Start 12/03/18 at 21:00 Aripiprazole (Abilify) 5 mg DAILY PO Last administered on 12/15/18 07:32; Start 12/04/18 at 09:00 Sertraline HCl (Zoloft) 50 mg DAILY PO Last administered on 3/9/19at 09:01; Start 12/04/18 at 09:00; Stop 12/06/18 at 21:00; Status DC Nystatin (Nystop) 1 andrew BID TP Last administered on 12/15/18at 19:33; Start 12/04 at 09:00 Sertraline HCl (Zoloft) 75 mg DAILY PO Last administered on 12/15/18at 07:33; Start 12/07/18 at 09:00; Stop 12/15/18 at 17:06; Status DC Trimethoprim/ Sulfamethoxazole (Bactrim Ds) 1 tab BID PO Last administered on at 08:15; Start 12/06/18 at 21:00; Stop 12/13/18 at 20:59; Status DC Lactobacillus Rhamnosus (Culturelle) 1 cap BID PO Last administered on at 19:34; Start 12/06/18 at 21:00 Aripiprazole (Abilify) 2.5 mg NOON PO Last administered on 12/15/18at 11:18; Start 12/08/18 at 12:00 Insulin Human Lispro (HumaLOG) 0-5 UNITS TIDWMEALS SQ Last administered on 12/15at 17:24; Start 12/13/18 at 08:00 Dextrose 12.5 gm PRN Q15MIN PRN IV SEE COMMENTS; Start 12/12/18 at 18:30 Sertraline HCl (Zoloft) 100 mg DAILY PO ; Start 12/16/18 at 09:00 Active Scripts Active Reported Tylenol (Acetaminophen) 325 Mg Tablet 325 Mg PO PRN Q6HRS PRN Tylenol (Acetaminophen) 325 Mg Tablet 650 Mg PO BID Tylenol (Acetaminophen) 325 Mg Tablet 325 Mg PO 1400 Polyethylene Glycol 3350 255 Gm Powder 17 Gm PO DAILY Nystatin 15 Gm Powder 15 Gm TP BID Ritalin (Methylphenidate Hcl) 5 Mg Tablet 5 Mg PO DAILY Glucophage (Metformin Hcl) 500 Mg Tablet 500 Mg PO DAILYBFRSUP Metformin Hcl 1,000 Mg Tablet 1,000 Mg PO DAILYWBKFT Milk Of Magnesia (Magnesium Hydroxide) 2,400 Mg/10 Ml Oral.susp 2,400 Mg PO PRN QHS PRN Meloxicam 7.5 Mg Tablet 7.5 Mg PO DAILY Lidocaine-Prilocaine Cream (Lidocaine/Prilocaine) 30 Gm Cream..g. 30 Gm TP PRN TID PRN Keppra (Levetiracetam) 500 Mg Tablet 500 Mg PO BID Lasix (Furosemide) 20 Mg Tablet 20 Mg PO DAILY Prevident 5000 Plus (Sodium Fluoride) 51 Gm Cream..g. 51 Gm DT BID Voltaren (Diclofenac Sodium) 100 Gm Gel..gram. 100 Gm TP QID Cranberry (Cranberry Extract) 200 Mg Capsule 200 Mg PO DAILY Citalopram Hbr (Citalopram Hydrobromide) 20 Mg Tablet 20 Mg PO DAILY Vitamin D (Cholecalciferol (Vitamin D3)) 1,000 Unit Capsule 1,000 Unit PO DAILY Aspirin Ec (Aspirin) 325 Mg Tablet.dr 325 Mg PO DAILY Abilify (Aripiprazole) 5 Mg Tablet 5 Mg PO 1800 I have reviewed the current psychotropics carefully including drug interactions. Risk benefit ratio favors no change other than as noted in my dictated progress note. Diagnosis: Problems: (1) Anxiety disorder (2) Impulse control disorder (3) Major depressive disorder, recurrent episode (4) Mild cognitive disorder ILENE LANG MD Dec 15, 2018 23:08
[2018-12-16 06:34] VITALS: BP 109/71
[2018-12-16] MEDS: LACTOBACILLUS RHAMNOSUS GG 1 CAPSULE. PO SCH ×2 (07:38→19:55)
[2018-12-16] MEDS: POLYETHYLENE GLYCOL 3350 17 GM PACKET. PO SCH (07:38)
[2018-12-16] MEDS: CHOLECALCIFEROL (VITAMIN D3) 1,000 UNIT TABLET PO SCH (07:39)
[2018-12-16] MEDS: ACETAMINOPHEN 325 MG TABLET PO SCH ×3 (07:39→19:55)
[2018-12-16] MEDS: MELOXICAM 7.5 MG TABLET PO SCH (07:39)
[2018-12-16] MEDS: FUROSEMIDE 20 MG TABLET PO SCH (07:39)
[2018-12-16] MEDS: ASPIRIN ENTERIC COATED 325 MG TABLET.DR. PO SCH (07:39)
[2018-12-16] MEDS: INSULIN LISPRO 300 UNITS/3 ML INSULN.PEN. SQ SCH ×3 (08:00→17:00)
[2018-12-16] MEDS: METHYLPHENIDATE HCL 5 MG TABLET PO SCH (08:07)
[2018-12-16] MEDS: ZONISAMIDE 100 MG CAPSULE. PO SCH ×2 (08:07→21:00)
[2018-12-16] MEDS: DICLOFENAC SODIUM 1% TOPICAL GEL 100GM TUBE. TP SCH ×4 (08:07→21:00)
[2018-12-16] MEDS: SERTRALINE 100 MG TABLET. PO SCH (08:07)
[2018-12-16] MEDS: NYSTATIN TOPICAL POWDER 15GM BOTTLE. TP SCH ×2 (08:07→21:00)
[2018-12-16] MEDS: ARIPiprazole 5 MG TABLET PO SCH ×2 (08:08→10:56)
[2018-12-16 16:33] VITALS: BP 110/68
--- NOTE | 2018-12-16 23:04 | PDOC ---
Exam Note: Bala Note: Please also refer to the separate dictated note~for this date of service dictated separately.~Patient seen individually. Discussed the patient with Nursing staff reviewed the chart.~Reviewed interim history and current functioning. Reviewed vital signs,~Labs/ Radiology~and current medications noted below. Continue current treatment with the changes noted in the dictated addendum note Assessment: Vital Signs: Vital Signs Date Time Temp Pulse Resp B/P (MAP) Pulse Ox O2 Delivery O2 Flow Rate FiO2 12/16/18 16:33 97.3 76 17 110/68 (82) 98 Room Air I&O Intake and Output 12/16/18 07:00 Intake Total 1160 ml Balance 1160 ml Intake Oral 1160 ml # Voids 1 # Bowel Movements 3 Labs: Laboratory Tests Test 12/16/18 07:11 12/16/18 11:33 12/16/18 16:37 12/16/18 19:06 Glucose (Fingerstick) 149 mg/dL (70-99) H 178 mg/dL (70-99) H 123 mg/dL (70-99) H 257 mg/dL (70-99) H Current Medications: Meds: Current Medications Ceftriaxone Sodium 1 gm/ Sodium Chloride 50 ml @ 100 mls/hr 1X ONCE IV ; Start 12/02/18 at 16:30; Stop 12/02/18 at 16:59; Status UNV Ceftriaxone Sodium (Rocephin Im) 1 gm 1X ONCE IM Last administered on at 16:34; Start 12/02/18 at 16:45; Stop 12/02/18 at 16:46; Status DC Lidocaine HCl 20 ml STK-MED ONCE .ROUTE ; Start 12/02/18 at 16:27; Stop 12/02/18 at 16:28; Status DC Acetaminophen (Tylenol) 650 mg PRN Q6HRS PRN PO PAIN / TEMP; Start 12/02/18 at 18:00 Multi-Ingredient Ointment (Analgesic [place]) 1 andrew PRN QID PRN TP MUSCLE PAIN; Start 12/02/18 at 18:00 Al Hydroxide/Mg Hydroxide (Mylanta Plus Xs) 15 ml PRN AFTMEALHC PRN PO DYSPEPSIA; Start 12/02/18 at 18:00 Magnesium Hydroxide (Milk Of Magnesia) 2,400 mg PRN QHS PRN PO CONSTIPATION; Start 12/02/18 at 18:00 Acetaminophen (Tylenol) 325 mg 1400 PO Last administered on 12/16/18at 10:55; Start 12/03/18 at 14:00 Acetaminophen (Tylenol) 325 mg PRN Q6HRS PRN PO PAIN; Start 12/02/18 at 21:00; Stop 12/02/18 at 21:18; Status DC Acetaminophen (Tylenol) 650 mg BID PO Last administered on 12/16/18at 19:55; Start 12/02/18 at 21:00 Aspirin (Aspirin Enteric Coated) 325 mg DAILY PO Last administered on at 07:39; Start 12/03/18 at 09:00 Citalopram Hydrobromide (CeleXA) 20 mg DAILY PO Last administered on 12/03/18at 08:20; Start 12/03/18 at 09:00; Stop 12/03/18 at 17:56; Status DC Diclofenac Sodium (Voltaren) 100 andrew QID TP ; Start 12/02/18 at 21:00; Stop at 13:10; Status DC Furosemide (Lasix) 20 mg DAILY PO Last administered on 12/16/18at 07:39; Start 12/03/18 at 09:00 Lidocaine/ Prilocaine (Emla) 5 andrew PRN TID PRN TP PAIN; Start 12/02/18 at 21:00 Nystatin (Nystop) 15 andrew BID TP Last administered on 12/03/18at 08:22; Start 12/02 at 21:00; Stop 12/04/18 at 07:51; Status DC Sodium Fluoride (Sf 5000 Plus) 51 andrew BID DT ; Start 12/02/18 at 21:00; Stop 12/02 at 21:18; Status DC Aripiprazole (Abilify) 5 mg 1800 PO Last administered on 12/03/18at 17:09; Start 12/03/18 at 18:00; Stop 12/03/18 at 18:00; Status DC Vitamin D (Vitamin D3) 1,000 unit DAILY PO Last administered on 12/16/18at 07:39 ; Start 12/03/18 at 09:00 Non-Formulary Medication (Cranberry Extract (Cranberry)) 200 mg DAILY PO ; Start 12/03/18 at 09:00; Stop 12/03/18 at 09:00; Status DC Levetiracetam (Keppra) 500 mg BID PO ; Start 12/03/18 at 09:00; Stop 12/03/18 at 09:00; Status DC Non-Formulary Medication (Magnesium Hydroxide (Milk Of Magnesia)) 2,400 mg PRN QHS PRN PO CONSTIPATION; Start 12/02/18 at 21:00; Stop 12/02/18 at 21:08; Status DC Meloxicam (Mobic) 7.5 mg DAILY PO Last administered on 12/16/18 07:39; Start 12/03/18 at 09:00 Metformin HCl (Glucophage) 1,000 mg DAILYWBKFT PO Last administered on 07:26; Start 12/03/18 at 08:00; Stop 12/12/18 at 18:25; Status DC Metformin HCl (Glucophage) 500 mg DAILYBFRSUP PO Last administered on at 17:32; Start 12/03/18 at 17:00; Stop 12/12/18 at 18:25; Status DC Methylphenidate HCl (Methylphenidate HCl) 5 mg DAILY PO Last administered on 08:07; Start 12/03/18 at 09:00 Polyethylene Glycol (miraLAX) 17 gm DAILY PO Last administered on 12/16/18at 07: 38; Start 12/03/18 at 09:00 Levetiracetam (Keppra) 500 mg BID PO Last administered on 12/03/18 08:21; Start 12/02/18 at 21:45; Stop 12/03/18 at 13:47; Status DC Diclofenac Sodium (Voltaren) 1 andrew QID TP Last administered on 12/16/18 21:00 ; Start 12/03/18 at 17:00 Zonisamide (Zonegran) 100 mg BID PO Last administered on 12/16/18 21:00; Start 12/03/18 at 21:00 Aripiprazole (Abilify) 5 mg DAILY PO Last administered on 12/16/18 08:08; Start 12/04/18 at 09:00 Sertraline HCl (Zoloft) 50 mg DAILY PO Last administered on 3/9/19at 09:01; Start 12/04/18 at 09:00; Stop 12/06/18 at 21:00; Status DC Nystatin (Nystop) 1 andrew BID TP Last administered on 12/16/18at 21:00; Start 12/04 at 09:00 Sertraline HCl (Zoloft) 75 mg DAILY PO Last administered on 12/15/18at 07:33; Start 12/07/18 at 09:00; Stop 12/15/18 at 17:06; Status DC Trimethoprim/ Sulfamethoxazole (Bactrim Ds) 1 tab BID PO Last administered on at 08:15; Start 12/06/18 at 21:00; Stop 12/13/18 at 20:59; Status DC Lactobacillus Rhamnosus (Culturelle) 1 cap BID PO Last administered on at 19:55; Start 12/06/18 at 21:00 Aripiprazole (Abilify) 2.5 mg NOON PO Last administered on 12/16/18at 10:56; Start 12/08/18 at 12:00 Insulin Human Lispro (HumaLOG) 0-5 UNITS TIDWMEALS SQ Last administered on 12/16at 12:17; Start 12/13/18 at 08:00 Dextrose 12.5 gm PRN Q15MIN PRN IV SEE COMMENTS; Start 12/12/18 at 18:30 Sertraline HCl (Zoloft) 100 mg DAILY PO Last administered on 12/16/18at 08:07; Start 12/16/18 at 09:00 Active Scripts Active Reported Tylenol (Acetaminophen) 325 Mg Tablet 325 Mg PO PRN Q6HRS PRN Tylenol (Acetaminophen) 325 Mg Tablet 650 Mg PO BID Tylenol (Acetaminophen) 325 Mg Tablet 325 Mg PO 1400 Polyethylene Glycol 3350 255 Gm Powder 17 Gm PO DAILY Nystatin 15 Gm Powder 15 Gm TP BID Ritalin (Methylphenidate Hcl) 5 Mg Tablet 5 Mg PO DAILY Glucophage (Metformin Hcl) 500 Mg Tablet 500 Mg PO DAILYBFRSUP Metformin Hcl 1,000 Mg Tablet 1,000 Mg PO DAILYWBKFT Milk Of Magnesia (Magnesium Hydroxide) 2,400 Mg/10 Ml Oral.susp 2,400 Mg PO PRN QHS PRN Meloxicam 7.5 Mg Tablet 7.5 Mg PO DAILY Lidocaine-Prilocaine Cream (Lidocaine/Prilocaine) 30 Gm Cream..g. 30 Gm TP PRN TID PRN Keppra (Levetiracetam) 500 Mg Tablet 500 Mg PO BID Lasix (Furosemide) 20 Mg Tablet 20 Mg PO DAILY Prevident 5000 Plus (Sodium Fluoride) 51 Gm Cream..g. 51 Gm DT BID Voltaren (Diclofenac Sodium) 100 Gm Gel..gram. 100 Gm TP QID Cranberry (Cranberry Extract) 200 Mg Capsule 200 Mg PO DAILY Citalopram Hbr (Citalopram Hydrobromide) 20 Mg Tablet 20 Mg PO DAILY Vitamin D (Cholecalciferol (Vitamin D3)) 1,000 Unit Capsule 1,000 Unit PO DAILY Aspirin Ec (Aspirin) 325 Mg Tablet.dr 325 Mg PO DAILY Abilify (Aripiprazole) 5 Mg Tablet 5 Mg PO 1800 I have reviewed the current psychotropics carefully including drug interactions. Risk benefit ratio favors no change other than as noted in my dictated progress note. Diagnosis: Problems: (1) Anxiety disorder (2) Impulse control disorder (3) Major depressive disorder, recurrent episode (4) Mild cognitive disorder ILENE LANG MD Dec 16, 2018 23:04
--- NOTE | 2018-12-17 02:27 | PN ---
DATE: 12/15/2018 PSYCHIATRIC PROGRESS NOTE This late entry 12/15/2018 covers elements not covered in my initial note. SUBJECTIVE: I met with the patient in the evening and reviewed information from Dr. Draper who covered for me over the past several days. The patient slept 7 hours previous evening. He is compliant with medication, at times appeared somewhat helpless, states she cannot get herself down the hallway in the wheelchair, repeatedly asking about her discharge plans and I addressed with her. REVIEW OF SYSTEMS: Ambulation impaired, in wheelchair. No CV, , pulmonary, eye, ENT system symptoms on review. MENTAL STATUS EXAM: Oriented to herself and situation. Speech has some latency, coherent, often responses monosyllabic. Abstraction fair, computation impaired, language function intact, attention span short. Mood and affect somewhat withdrawn, dysphoric. LABORATORY DATA: Reviewed. IMPRESSION: Unchanged from initial note. PLAN: Increase Zoloft from 75 mg a day to 100 mg a day. Continue rest unchanged including Abilify 2.5 mg at noon, 5 mg daily. MAN Kristyn LANG MD DR: NIDIA/kwasi JOB#: [id number] / [id number]
[2018-12-17 06:23] VITALS: BP 107/74
[2018-12-17] MEDS: ASPIRIN ENTERIC COATED 325 MG TABLET.DR. PO SCH (06:25)
[2018-12-17] MEDS: POLYETHYLENE GLYCOL 3350 17 GM PACKET. PO SCH (06:25)
[2018-12-17] MEDS: SERTRALINE 100 MG TABLET. PO SCH (06:26)
[2018-12-17] MEDS: ARIPiprazole 5 MG TABLET PO SCH ×2 (06:26→11:50)
[2018-12-17] MEDS: MELOXICAM 7.5 MG TABLET PO SCH (06:26)
[2018-12-17] MEDS: ACETAMINOPHEN 325 MG TABLET PO SCH ×3 (06:26→20:15)
[2018-12-17] MEDS: FUROSEMIDE 20 MG TABLET PO SCH (06:26)
[2018-12-17] MEDS: LACTOBACILLUS RHAMNOSUS GG 1 CAPSULE. PO SCH ×2 (06:26→20:15)
[2018-12-17] MEDS: CHOLECALCIFEROL (VITAMIN D3) 1,000 UNIT TABLET PO SCH (06:26)
[2018-12-17] MEDS: METHYLPHENIDATE HCL 5 MG TABLET PO SCH (06:27)
[2018-12-17] MEDS: ZONISAMIDE 100 MG CAPSULE. PO SCH ×2 (06:28→20:12)
[2018-12-17] MEDS: DICLOFENAC SODIUM 1% TOPICAL GEL 100GM TUBE. TP SCH ×4 (06:29→20:16)
[2018-12-17] MEDS: INSULIN LISPRO 300 UNITS/3 ML INSULN.PEN. SQ SCH ×3 (08:13→17:00)
[2018-12-17] MEDS: NYSTATIN TOPICAL POWDER 15GM BOTTLE. TP SCH ×2 (09:00→20:16)
[2018-12-17 16:45] VITALS: BP 113/72
--- NOTE | 2018-12-17 22:56 | PDOC ---
Exam Note: Bala Note: Please also refer to the separate dictated note~for this date of service dictated separately.~Patient seen individually. Discussed the patient with Nursing staff reviewed the chart.~Reviewed interim history and current functioning. Reviewed vital signs,~Labs/ Radiology~and current medications noted below. Continue current treatment with the changes noted in the dictated addendum note Assessment: Vital Signs: Vital Signs Date Time Temp Pulse Resp B/P (MAP) Pulse Ox O2 Delivery O2 Flow Rate FiO2 12/17/18 16:45 98.5 78 19 113/72 (86) 97 12/16/18 16:33 Room Air I&O Intake and Output 12/17/18 07:00 Intake Total 1080 ml Balance 1080 ml Intake Oral 1080 ml # Bowel Movements 1 Labs: Laboratory Tests Test 12/17/18 07:14 12/17/18 11:36 12/17/18 17:10 12/17/18 19:16 Glucose (Fingerstick) 170 mg/dL (70-99) H 127 mg/dL (70-99) H 147 mg/dL (70-99) H 228 mg/dL (70-99) H Current Medications: Meds: Current Medications Ceftriaxone Sodium 1 gm/ Sodium Chloride 50 ml @ 100 mls/hr 1X ONCE IV ; Start 12/02/18 at 16:30; Stop 12/02/18 at 16:59; Status UNV Ceftriaxone Sodium (Rocephin Im) 1 gm 1X ONCE IM Last administered on at 16:34; Start 12/02/18 at 16:45; Stop 12/02/18 at 16:46; Status DC Lidocaine HCl 20 ml STK-MED ONCE .ROUTE ; Start 12/02/18 at 16:27; Stop 12/02/18 at 16:28; Status DC Acetaminophen (Tylenol) 650 mg PRN Q6HRS PRN PO PAIN / TEMP; Start 12/02/18 at 18:00 Multi-Ingredient Ointment (Analgesic [place]) 1 andrew PRN QID PRN TP MUSCLE PAIN; Start 12/02/18 at 18:00 Al Hydroxide/Mg Hydroxide (Mylanta Plus Xs) 15 ml PRN AFTMEALHC PRN PO DYSPEPSIA; Start 12/02/18 at 18:00 Magnesium Hydroxide (Milk Of Magnesia) 2,400 mg PRN QHS PRN PO CONSTIPATION; Start 12/02/18 at 18:00 Acetaminophen (Tylenol) 325 mg 1400 PO Last administered on 12/17/18at 11:51; Start 12/03/18 at 14:00 Acetaminophen (Tylenol) 325 mg PRN Q6HRS PRN PO PAIN; Start 12/02/18 at 21:00; Stop 12/02/18 at 21:18; Status DC Acetaminophen (Tylenol) 650 mg BID PO Last administered on 12/17/18at 20:15; Start 12/02/18 at 21:00 Aspirin (Aspirin Enteric Coated) 325 mg DAILY PO Last administered on at 06:25; Start 12/03/18 at 09:00 Citalopram Hydrobromide (CeleXA) 20 mg DAILY PO Last administered on 12/03/18at 08:20; Start 12/03/18 at 09:00; Stop 12/03/18 at 17:56; Status DC Diclofenac Sodium (Voltaren) 100 andrew QID TP ; Start 12/02/18 at 21:00; Stop at 13:10; Status DC Furosemide (Lasix) 20 mg DAILY PO Last administered on 12/17/18at 06:26; Start 12/03/18 at 09:00 Lidocaine/ Prilocaine (Emla) 5 andrew PRN TID PRN TP PAIN; Start 12/02/18 at 21:00 Nystatin (Nystop) 15 andrew BID TP Last administered on 12/03/18at 08:22; Start 12/02 at 21:00; Stop 12/04/18 at 07:51; Status DC Sodium Fluoride (Sf 5000 Plus) 51 andrew BID DT ; Start 12/02/18 at 21:00; Stop 12/02 at 21:18; Status DC Aripiprazole (Abilify) 5 mg 1800 PO Last administered on 12/03/18at 17:09; Start 12/03/18 at 18:00; Stop 12/03/18 at 18:00; Status DC Vitamin D (Vitamin D3) 1,000 unit DAILY PO Last administered on 12/17/18at 06:26 ; Start 12/03/18 at 09:00 Non-Formulary Medication (Cranberry Extract (Cranberry)) 200 mg DAILY PO ; Start 12/03/18 at 09:00; Stop 12/03/18 at 09:00; Status DC Levetiracetam (Keppra) 500 mg BID PO ; Start 12/03/18 at 09:00; Stop 12/03/18 at 09:00; Status DC Non-Formulary Medication (Magnesium Hydroxide (Milk Of Magnesia)) 2,400 mg PRN QHS PRN PO CONSTIPATION; Start 12/02/18 at 21:00; Stop 12/02/18 at 21:08; Status DC Meloxicam (Mobic) 7.5 mg DAILY PO Last administered on 12/17/18 06:26; Start 12/03/18 at 09:00 Metformin HCl (Glucophage) 1,000 mg DAILYWBKFT PO Last administered on 07:26; Start 12/03/18 at 08:00; Stop 12/12/18 at 18:25; Status DC Metformin HCl (Glucophage) 500 mg DAILYBFRSUP PO Last administered on at 17:32; Start 12/03/18 at 17:00; Stop 12/12/18 at 18:25; Status DC Methylphenidate HCl (Methylphenidate HCl) 5 mg DAILY PO Last administered on 06:27; Start 12/03/18 at 09:00 Polyethylene Glycol (miraLAX) 17 gm DAILY PO Last administered on 12/17/18at 06: 25; Start 12/03/18 at 09:00 Levetiracetam (Keppra) 500 mg BID PO Last administered on 12/03/18 08:21; Start 12/02/18 at 21:45; Stop 12/03/18 at 13:47; Status DC Diclofenac Sodium (Voltaren) 1 andrew QID TP Last administered on 12/17/18 20:16 ; Start 12/03/18 at 17:00 Zonisamide (Zonegran) 100 mg BID PO Last administered on 12/17/18 20:12; Start 12/03/18 at 21:00 Aripiprazole (Abilify) 5 mg DAILY PO Last administered on 12/17/18 06:26; Start 12/04/18 at 09:00 Sertraline HCl (Zoloft) 50 mg DAILY PO Last administered on 12/06/18at 09:01; Start 12/04/18 at 09:00; Stop 12/06/18 at 21:00; Status DC Nystatin (Nystop) 1 andrew BID TP Last administered on 12/17/18at 20:16; Start 12/04 at 09:00 Sertraline HCl (Zoloft) 75 mg DAILY PO Last administered on 12/15/18at 07:33; Start 12/07/18 at 09:00; Stop 12/15/18 at 17:06; Status DC Trimethoprim/ Sulfamethoxazole (Bactrim Ds) 1 tab BID PO Last administered on at 08:15; Start 12/06/18 at 21:00; Stop 12/13/18 at 20:59; Status DC Lactobacillus Rhamnosus (Culturelle) 1 cap BID PO Last administered on at 20:15; Start 12/06/18 at 21:00 Aripiprazole (Abilify) 2.5 mg NOON PO Last administered on 12/17/18at 11:50; Start 12/08/18 at 12:00 Insulin Human Lispro (HumaLOG) 0-5 UNITS TIDWMEALS SQ Last administered on 12/17at 08:13; Start 12/13/18 at 08:00 Dextrose 12.5 gm PRN Q15MIN PRN IV SEE COMMENTS; Start 12/12/18 at 18:30 Sertraline HCl (Zoloft) 100 mg DAILY PO Last administered on 12/17/18at 06:26; Start 12/16/18 at 09:00 Active Scripts Active Reported Tylenol (Acetaminophen) 325 Mg Tablet 325 Mg PO PRN Q6HRS PRN Tylenol (Acetaminophen) 325 Mg Tablet 650 Mg PO BID Tylenol (Acetaminophen) 325 Mg Tablet 325 Mg PO 1400 Polyethylene Glycol 3350 255 Gm Powder 17 Gm PO DAILY Nystatin 15 Gm Powder 15 Gm TP BID Ritalin (Methylphenidate Hcl) 5 Mg Tablet 5 Mg PO DAILY Glucophage (Metformin Hcl) 500 Mg Tablet 500 Mg PO DAILYBFRSUP Metformin Hcl 1,000 Mg Tablet 1,000 Mg PO DAILYWBKFT Milk Of Magnesia (Magnesium Hydroxide) 2,400 Mg/10 Ml Oral.susp 2,400 Mg PO PRN QHS PRN Meloxicam 7.5 Mg Tablet 7.5 Mg PO DAILY Lidocaine-Prilocaine Cream (Lidocaine/Prilocaine) 30 Gm Cream..g. 30 Gm TP PRN TID PRN Keppra (Levetiracetam) 500 Mg Tablet 500 Mg PO BID Lasix (Furosemide) 20 Mg Tablet 20 Mg PO DAILY Prevident 5000 Plus (Sodium Fluoride) 51 Gm Cream..g. 51 Gm DT BID Voltaren (Diclofenac Sodium) 100 Gm Gel..gram. 100 Gm TP QID Cranberry (Cranberry Extract) 200 Mg Capsule 200 Mg PO DAILY Citalopram Hbr (Citalopram Hydrobromide) 20 Mg Tablet 20 Mg PO DAILY Vitamin D (Cholecalciferol (Vitamin D3)) 1,000 Unit Capsule 1,000 Unit PO DAILY Aspirin Ec (Aspirin) 325 Mg Tablet. 325 Mg PO DAILY Abilify (Aripiprazole) 5 Mg Tablet 5 Mg PO 1800 I have reviewed the current psychotropics carefully including drug interactions. Risk benefit ratio favors no change other than as noted in my dictated progress note. Diagnosis: Problems: (1) Anxiety disorder (2) Impulse control disorder (3) Major depressive disorder, recurrent episode (4) Mild cognitive disorder ILENE LANG MD Dec 17, 2018 22:56
--- NOTE | 2018-12-18 03:53 | PN ---
DATE: 12/16/2018 PSYCHIATRIC PROGRESS NOTE This late entry for 12/16/2018 covers elements not covered in my initial note. SUBJECTIVE: I met with the patient in the evening. The patient slept 8-1/4 hours previous night. She has been somewhat helpless, anxious, but less depressed. She grabbed someone's hand off the wheelchair, but certainly was not aggressive. I processed this with her. REVIEW OF SYSTEMS: Ambulation impaired, in wheelchair. No CV, , pulmonary, eye system symptoms on review. MENTAL STATUS EXAM: Oriented to herself and situation. Speech has some latency, coherent. Abstraction fair, computation impaired, language function intact, attention span short. Mood and affect improved. LABORATORY DATA: Reviewed. IMPRESSION: Unchanged from initial note. PLAN: No change from initial note. MAN Kristyn LANG MD DR: NIDIA/kwasi JOB#: [id number] / [id number]
[2018-12-18] MEDS ORDERED: ARIP5TAB13 PO (04:25)
[2018-12-18] MEDS ORDERED: LACT1CAP21 PO (04:29)
[2018-12-18] MEDS ORDERED: MAG30ORA2 PO (04:32)
[2018-12-18] MEDS ORDERED: METH29OI TP (04:33)
[2018-12-18] MEDS ORDERED: SERT100T PO (04:34)
[2018-12-18] MEDS ORDERED: ZONI100C33 PO (04:35)
[2018-12-18 06:20] VITALS: BP 121/77
[2018-12-18] MEDS ORDERED: INSU100I11 SQ (07:27)
[2018-12-18] MEDS: LACTOBACILLUS RHAMNOSUS GG 1 CAPSULE. PO SCH (08:04)
[2018-12-18] MEDS: POLYETHYLENE GLYCOL 3350 17 GM PACKET. PO SCH (08:04)
[2018-12-18] MEDS: CHOLECALCIFEROL (VITAMIN D3) 1,000 UNIT TABLET PO SCH (08:04)
[2018-12-18] MEDS: ARIPiprazole 5 MG TABLET PO SCH ×2 (08:05→12:00)
[2018-12-18] MEDS: MELOXICAM 7.5 MG TABLET PO SCH (08:05)
[2018-12-18] MEDS: ASPIRIN ENTERIC COATED 325 MG TABLET.DR. PO SCH (08:05)
[2018-12-18] MEDS: FUROSEMIDE 20 MG TABLET PO SCH (08:05)
[2018-12-18] MEDS: ACETAMINOPHEN 325 MG TABLET PO SCH (08:05)
[2018-12-18] MEDS: SERTRALINE 100 MG TABLET. PO SCH (08:05)
[2018-12-18] MEDS: METHYLPHENIDATE HCL 5 MG TABLET PO SCH (08:06)
[2018-12-18] MEDS: ZONISAMIDE 100 MG CAPSULE. PO SCH (08:06)
[2018-12-18] MEDS: NYSTATIN TOPICAL POWDER 15GM BOTTLE. TP SCH (08:07)
[2018-12-18] MEDS: DICLOFENAC SODIUM 1% TOPICAL GEL 100GM TUBE. TP SCH ×2 (08:07→12:02)
[2018-12-18] MEDS: INSULIN LISPRO 300 UNITS/3 ML INSULN.PEN. SQ SCH ×2 (08:08→12:01)
--- NOTE | 2018-12-18 22:46 | PDOC ---
Exam Note: Bala Note: Please also refer to the separate dictated note~for this date of service dictated separately.~Patient seen individually. Discussed the patient with Nursing staff reviewed the chart.~Reviewed interim history and current functioning. Reviewed vital signs,~Labs/ Radiology~and current medications noted below. Continue current treatment with the changes noted in the dictated addendum note Assessment: Vital Signs: Vital Signs Date Time Temp Pulse Resp B/P (MAP) Pulse Ox O2 Delivery O2 Flow Rate FiO2 12/18/18 06:20 97.4 65 16 121/77 (92) 98 12/16/18 16:33 Room Air I&O Intake and Output 12/18/18 07:00 Intake Total 1800 ml Balance 1800 ml Intake Oral 1800 ml # Bowel Movements 1 Labs: Laboratory Tests Test 12/18/18 07:30 12/18/18 11:35 Glucose (Fingerstick) 162 mg/dL (70-99) H 169 mg/dL (70-99) H Current Medications: Meds: Current Medications Ceftriaxone Sodium 1 gm/ Sodium Chloride 50 ml @ 100 mls/hr 1X ONCE IV ; Start 12/02/18 at 16:30; Stop 12/02/18 at 16:59; Status UNV Ceftriaxone Sodium (Rocephin Im) 1 gm 1X ONCE IM Last administered on at 16:34; Start 12/02/18 at 16:45; Stop 12/02/18 at 16:46; Status DC Lidocaine HCl 20 ml STK-MED ONCE .ROUTE ; Start 12/02/18 at 16:27; Stop 12/02/18 at 16:28; Status DC Acetaminophen (Tylenol) 650 mg PRN Q6HRS PRN PO PAIN / TEMP; Start 12/02/18 at 18:00; Stop 12/18/18 at 13:05; Status DC Multi-Ingredient Ointment (Analgesic Goode) 1 rozina PRN QID PRN TP MUSCLE PAIN; Start 12/02/18 at 18:00; Stop 12/18/18 at 13:05; Status DC Al Hydroxide/Mg Hydroxide (Mylanta Plus Xs) 15 ml PRN AFTMEALHC PRN PO DYSPEPSIA; Start 12/02/18 at 18:00; Stop 12/18/18 at 13:05; Status DC Magnesium Hydroxide (Milk Of Magnesia) 2,400 mg PRN QHS PRN PO CONSTIPATION; Start 12/02/18 at 18:00; Stop 12/18/18 at 13:05; Status DC Acetaminophen (Tylenol) 325 mg 1400 PO Last administered on 12/17/18at 11:51; Start 12/03/18 at 14:00; Stop 12/18/18 at 13:05; Status DC Acetaminophen (Tylenol) 325 mg PRN Q6HRS PRN PO PAIN; Start 12/02/18 at 21:00; Stop 12/02/18 at 21:18; Status DC Acetaminophen (Tylenol) 650 mg BID PO Last administered on 12/18/18at 08:05; Start 12/02/18 at 21:00; Stop 12/18/18 at 13:05; Status DC Aspirin (Aspirin Enteric Coated) 325 mg DAILY PO Last administered on at 08:05; Start 12/03/18 at 09:00; Stop 12/18/18 at 13:05; Status DC Citalopram Hydrobromide (CeleXA) 20 mg DAILY PO Last administered on 12/03/18at 08:20; Start 12/03/18 at 09:00; Stop 12/03/18 at 17:56; Status DC Diclofenac Sodium (Voltaren) 100 rozina QID TP ; Start 12/02/18 at 21:00; Stop at 13:10; Status DC Furosemide (Lasix) 20 mg DAILY PO Last administered on 12/18/18at 08:05; Start 12/03/18 at 09:00; Stop 12/18/18 at 13:05; Status DC Lidocaine/ Prilocaine (Emla) 5 rozina PRN TID PRN TP PAIN; Start 12/02/18 at 21:00 ; Stop 12/18/18 at 13:05; Status DC Nystatin (Nystop) 15 rozina BID TP Last administered on 12/03/18at 08:22; Start 12/02 at 21:00; Stop 12/04/18 at 07:51; Status DC Sodium Fluoride (Sf 5000 Plus) 51 rozina BID DT ; Start 12/02/18 at 21:00; Stop 12/02 at 21:18; Status DC Aripiprazole (Abilify) 5 mg 1800 PO Last administered on 12/03/18at 17:09; Start 12/03/18 at 18:00; Stop 12/03/18 at 18:00; Status DC Vitamin D (Vitamin D3) 1,000 unit DAILY PO Last administered on 12/18/18at 08:04 ; Start 12/03/18 at 09:00; Stop 12/18/18 at 13:05; Status DC Non-Formulary Medication (Cranberry Extract (Cranberry)) 200 mg DAILY PO ; Start 12/03/18 at 09:00; Stop 12/03/18 at 09:00; Status DC Levetiracetam (Keppra) 500 mg BID PO ; Start 12/03/18 at 09:00; Stop 12/03/18 at 09:00; Status DC Non-Formulary Medication (Magnesium Hydroxide (Milk Of Magnesia)) 2,400 mg PRN QHS PRN PO CONSTIPATION; Start 12/02/18 at 21:00; Stop 12/02/18 at 21:08; Status DC Meloxicam (Mobic) 7.5 mg DAILY PO Last administered on 12/18/18at 08:05; Start 12/03/18 at 09:00; Stop 12/18/18 at 13:05; Status DC Metformin HCl (Glucophage) 1,000 mg DAILYWBKFT PO Last administered on at 07:26; Start 12/03/18 at 08:00; Stop 12/12/18 at 18:25; Status DC Metformin HCl (Glucophage) 500 mg DAILYBFRSUP PO Last administered on at 17:32; Start 12/03/18 at 17:00; Stop 12/12/18 at 18:25; Status DC Methylphenidate HCl (Methylphenidate HCl) 5 mg DAILY PO Last administered on at 08:06; Start 12/03/18 at 09:00; Stop 12/18/18 at 13:05; Status DC Polyethylene Glycol (miraLAX) 17 gm DAILY PO Last administered on 12/18/18at 08: 04; Start 12/03/18 at 09:00; Stop 12/18/18 at 13:05; Status DC Levetiracetam (Keppra) 500 mg BID PO Last administered on 12/03/18at 08:21; Start 12/02/18 at 21:45; Stop 12/03/18 at 13:47; Status DC Diclofenac Sodium (Voltaren) 1 rozina QID TP Last administered on 12/18/18at 12:02 ; Start 12/03/18 at 17:00; Stop 12/18/18 at 13:05; Status DC Zonisamide (Zonegran) 100 mg BID PO Last administered on 12/18/18at 08:06; Start 12/03/18 at 21:00; Stop 12/18/18 at 13:05; Status DC Aripiprazole (Abilify) 5 mg DAILY PO Last administered on 12/18/18at 08:05; Start 12/04/18 at 09:00; Stop 12/18/18 at 13:05; Status DC Sertraline HCl (Zoloft) 50 mg DAILY PO Last administered on 12/06/18at 09:01; Start 12/04/18 at 09:00; Stop 12/06/18 at 21:00; Status DC Nystatin (Nystop) 1 rozina BID TP Last administered on 12/18/18at 08:07; Start 12/04 at 09:00; Stop 12/18/18 at 13:05; Status DC Sertraline HCl (Zoloft) 75 mg DAILY PO Last administered on 12/15/18at 07:33; Start 12/07/18 at 09:00; Stop 12/15/18 at 17:06; Status DC Trimethoprim/ Sulfamethoxazole (Bactrim Ds) 1 tab BID PO Last administered on at 08:15; Start 12/06/18 at 21:00; Stop 12/13/18 at 20:59; Status DC Lactobacillus Rhamnosus (Culturelle) 1 cap BID PO Last administered on at 08:04; Start 12/06/18 at 21:00; Stop 12/18/18 at 13:05; Status DC Aripiprazole (Abilify) 2.5 mg NOON PO Last administered on 12/18/18at 12:00; Start 12/08/18 at 12:00; Stop 12/18/18 at 13:05; Status DC Insulin Human Lispro (HumaLOG) 0-5 UNITS TIDWMEALS SQ Last administered on 12/18at 12:01; Start 12/13/18 at 08:00; Stop 12/18/18 at 13:05; Status DC Dextrose 12.5 gm PRN Q15MIN PRN IV SEE COMMENTS; Start 12/12/18 at 18:30; Stop 12/18/18 at 13:05; Status DC Sertraline HCl (Zoloft) 100 mg DAILY PO Last administered on 12/18/18at 08:05; Start 12/16/18 at 09:00; Stop 12/18/18 at 13:05; Status DC Active Scripts Active Reported Humalog (Insulin Lispro) 100 Unit/1 Ml Insuln.pen 100 Unit SQ TIDWMEALS Sliding Scale FSBS < 70 Follow hypoglycemia protocol 70-150 0 units if eating 0 units if not eating 150-200 2 units if eating 0 units if not eating 200-250 3 units if eating 0 units if not eating 250-300 4 units if eating 2 units if not eating 300-350 5 units if eating 3 units if not eating > 351 Call [facility] NOW for insulin orders Zonegran (Zonisamide) 100 Mg Capsule 100 Mg PO BID Zoloft (Sertraline Hcl) 100 Mg Tablet 100 Mg PO DAILY Analgesic Goode (Methyl Salicylate/Menthol) 28 Gm Oint...g. 1 Rozina TP PRN QID PRN Mag-Al Plus Xs Suspension (Mag Hydrox/Al Hydrox/Simeth) 30 Ml Oral.susp 15 Ml PO PRN AFTMEALHC PRN Culturelle (Lactobacillus Rhamnosus Gg) 1 Each Capsule 1 Each PO BID Abilify (Aripiprazole) 5 Mg Tablet 2.5 Mg PO NOON Tylenol (Acetaminophen) 325 Mg Tablet 650 Mg PO PRN Q6HRS PRN Tylenol (Acetaminophen) 325 Mg Tablet 650 Mg PO BID Tylenol (Acetaminophen) 325 Mg Tablet 325 Mg PO 1400 Polyethylene Glycol 3350 255 Gm Powder 17 Gm PO DAILY Nystatin 15 Gm Powder 15 Gm TP BID Ritalin (Methylphenidate Hcl) 5 Mg Tablet 5 Mg PO DAILY Milk Of Magnesia (Magnesium Hydroxide) 2,400 Mg/10 Ml Oral.susp 2,400 Mg PO PRN QHS PRN Meloxicam 7.5 Mg Tablet 7.5 Mg PO DAILY Lidocaine-Prilocaine Cream (Lidocaine/Prilocaine) 30 Gm Cream..g. 5 Rozina TP PRN TID PRN Lasix (Furosemide) 20 Mg Tablet 20 Mg PO DAILY Voltaren (Diclofenac Sodium) 100 Gm Gel..gram. 1 Rozina TP QID Vitamin D (Cholecalciferol (Vitamin D3)) 1,000 Unit Capsule 1,000 Unit PO DAILY Aspirin Ec (Aspirin) 325 Mg Tablet. 325 Mg PO DAILY Abilify (Aripiprazole) 5 Mg Tablet 5 Mg PO 0900 I have reviewed the current psychotropics carefully including drug interactions. Risk benefit ratio favors no change other than as noted in my dictated progress note. Diagnosis: Problems: (1) Anxiety disorder (2) Impulse control disorder (3) Major depressive disorder, recurrent episode (4) Mild cognitive disorder ILENE LANG MD Dec 18, 2018 22:46
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
--- NOTE | 2018-12-19 15:36 | PN ---
DATE: 12/17/2018 PSYCHIATRIC PROGRESS NOTE This late entry 12/17/2018 covers elements not covered in my initial note. SUBJECTIVE: I met with the patient in the evening. The patient slept 7-1/2 hours previous night. She is otherwise oriented, somewhat needy per nursing report, but better. REVIEW OF SYSTEMS: Ambulation impaired, in wheelchair. No CV, , pulmonary, eye system symptoms on review. MENTAL STATUS EXAM: Oriented to herself and situation. Speech has some latency, coherent. Abstraction fair, computation somewhat impaired, language function intact. Mood and affect still somewhat anxious, but improved; very pleasant, interactive as I met with her. LABORATORY DATA: Reviewed. IMPRESSION: Unchanged from initial note. PLAN: No change from initial note. MAN Kristyn LANG MD DR: NIDIA/kwasi JOB#: [id number] / [id number]
== END 2018-12-18 13:05 | DRG 885 ==
LOC: ER 13:39 → EEVIPCON 13:39 → ER 17:00 → GEROPSY 17:08
PROVIDERS: ADMIT Psychiatry & Neurology Psychiatry; ATTEND Psychiatry & Neurology Psychiatry
DX: F33.9 Major depressive disorder, recurrent, unspecified (principal); N39.0 Urinary tract infection, site not specified; F02.81 Dementia in other diseases classified elsewhere, unspecified severity, with behavioral disturbance; G30.9 Alzheimer's disease, unspecified; F63.9 Impulse disorder, unspecified; F41.9 Anxiety disorder, unspecified; E66.01 Morbid (severe) obesity due to excess calories; F33.41 Major depressive disorder, recurrent, in partial remission; E11.22 Type 2 diabetes mellitus with diabetic chronic kidney disease; E11.21 Type 2 diabetes mellitus with diabetic nephropathy; K59.09 Other constipation; D69.6 Thrombocytopenia, unspecified; N18.1 Chronic kidney disease, stage 1; E78.5 Hyperlipidemia, unspecified; E83.42 Hypomagnesemia; G40.909 Epilepsy, unspecified, not intractable, without status epilepticus; G89.4 Chronic pain syndrome; I25.10 Atherosclerotic heart disease of native coronary artery without angina pectoris; M17.0 Bilateral primary osteoarthritis of knee; Z68.33 Body mass index [BMI] 33.0-33.9, adult; Z79.899 Other long term (current) drug therapy; Z86.73 Personal history of transient ischemic attack (TIA), and cerebral infarction without residual deficits; Z87.440 Personal history of urinary (tract) infections
CPT/HCPCS: 36415; 70450; 80048; 80053; 80061; 81001; 82306; 82947; 83036; 83540; 83550; 83735; 84436; 84443; 84480; 85025; 86592; 87086; 87186; 92526; 93005; 96372; J0696; J1815; 92610; 99285-25